=== PATIENT | male | born 1950 | race Caucasian/White ===

== ENCOUNTER 2018-10-06 13:22 | Inpatient (IN) | payer MEDICARE, BC ==
[~2018-10-06] VITALS: Ht 175.3 cm; Wt 102.0 kg
[~2018-10-06 13:22] MED LIST: ASPIRIN 32325 MG/TAB PO; ASPIRIN EXTRA500 M1 PO; ASPRIN; CEPHALEXIN500 M1 PO; EXCEDRIN1 TAB PO; GLUCOPHAGE500 MG/TAB PO; MAVIK; MAVIK4 MG PO; NORCO 325 MG-51 TAB PO; PERCOCET 325 MG1 TA2 PO; PRILOSEC 20MG20 MG PO; TOPROL; TOPROL XL100 MG PO
[2018-10-06] MEDS ORDERED: TYLEINFANT PO (18:03)
[2018-10-06] MEDS ORDERED: [UNRECOGNIZED DRUG - CODE] PEG (18:10)
[2018-10-06] MEDS ORDERED: ASPIRIN 81M81 MG/TA2 PEG (18:11)
[2018-10-06] MEDS ORDERED: LIPITOR 10MG10 MG PEG (18:13)
[2018-10-06 18:53] VITALS: BP 100/63; PULSE 94; TEMP 98.3
--- NOTE | 2018-10-06 20:58 | NUR ---
Patient arrived via ambulance and was transferred to bed in room #338. Family followed arriving 10 to 15 minutes later. Initial assessment was completed by CRTT. Daughter had requested that her dad get put on BIPAP as he was on it when at [facility]. Will have nurse tomorrow discuss with Dr. Verde. Patient is a mouth breather, but when lying in bed his oxygen is at 94% on RA. He has never had a sleep study completed. Patient's was okay with him not using BIPAP tonight, but wanted to see what Dr. Verde said about it tomorrow.
--- NOTE | 2018-10-06 22:50 | NUR ---
CHECKED PLACEMENT AND RESIDUAL OF PEG TUBE. SEE PEG NOTES. 2CAL HN TUBE BOLUS FEEDING STARTED. GREG WELL. HOB UP45 DEGREES. CLEANED AROUND PEG TUBE SITE. OLD DRIED EXUDATE CLEANED AND PLACED DRAIN DRSG. MARADIAGA CATH CARE GIVEN. URINOMETER HAS THICK HAZY BUILDUP. CHANGED JUST DRAINAGE SYSTEM. NOTABLE HEMATOMAS BILAT GROIN AREAS. BRUISING EXTENDING DOWN RT THIGH AND MEDIAL KNEE. EDEMA +3 RLE. LLE +2 ALMOST +3. PEDAL & RADIAL PULSES DIFFICULT TO PALPATE. IMMOBILIZED TO RT FOOT FOR FOOT DROP. SCD'S ON BILAT. TEDS OFF FOR AWHILE TO LET SKIN BREATHE.
--- NOTE | 2018-10-06 23:00 | NUR ---
UNABLE TO GET PATIENT COMFORT. C/O BACK PAIN. LEVEL 10. PT IN & OUT OF CONFUSION. SOMETIMES VERY ORIENTED. PT VERY FATIGUED. FALLS ASLEEP INTHE MIDDLE OF SENTENCE THEN WAKES 3-5 MIN LATER. RESTLESS. THROWS LEG OVER EDGE OF BED. USING CALL LIGHT FREQUENTLY. CHECKED O2 SAT. 93% ROOM. SNORUS LOUD RESP WITH SMALL PERIODS OD APNEA. NOTIFIED LISA OF PT'S C/O BACK PAIN, HX AND ALLERGIES. NEW ORDER NOTED. PT REPOSITIONED SEVRAL TIMES 2:1 MAX ASSIST. PT FLACCID ON LT SIDE. SPEECH GARBLED BUT ABLE TO MAKE OUT MOST OF WHAT HES TRYING TO SAY.
--- NOTE | 2018-10-07 02:05 | NUR ---
O2 SAT 89% RA/ PLACED O2 AT 2L NC. NOTIFIED RT.
--- NOTE | 2018-10-07 02:49 | NUR ---
NOTIFIED HOUSE SUP NEED OF TORODOL 10MG TAB.
[2018-10-07] MEDS ORDERED: CORDARONE200 MG/TAB PEG (04:32)
[2018-10-07] MEDS ORDERED: AUGMENTIN ES-6125 ML PO (04:54)
[2018-10-07] MEDS ORDERED: REFRESH TEARS 330 ML OU (04:57)
[2018-10-07] MEDS ORDERED: CYMBALTA 30MG30 MG PO (04:59)
[2018-10-07] MEDS ORDERED: LASIX ORAL S10 MG/ML PEG (05:01)
[2018-10-07] MEDS ORDERED: NOVLOG SQ ×2 (05:03→05:07)
[2018-10-07] MEDS ORDERED: SODIUM BICARBO650 MG PEG (05:08)
[2018-10-07] MEDS ORDERED: NITROSTAT0.4 MG/TAB SL (05:09)
[2018-10-07] MEDS ORDERED: EXCEDRIN1 TAB PO (05:11)
[2018-10-07] MEDS ORDERED: PLAVIX 75MG TAB75 MG PEG (05:12)
[2018-10-07 05:23] VITALS: BP 119/76; PULSE 87; TEMP 97.7
--- NOTE | 2018-10-07 06:14 | NUR ---
PT HAD RESTLESS NIGHT. CALLS OUT FREQ. USES CALL LIGHT FREQUENTLY. REPOSITIONED SEVERAL TIMES FOR COMFORT. NO STOOLS TONIGHT.
[2018-10-07 17:22] VITALS: BP 114/76; PULSE 95; TEMP 99
--- NOTE | 2018-10-07 19:40 | NUR ---
See physician notification re: daughter Claire's phone call. Attempted to transfer to [employer] Dispatcher, Chaparrita, who was unable to take her call at the time. Called HS again, Jluis here to report to.
--- NOTE | 2018-10-07 20:07 | NUR ---
Claire called back, states she will be here in the morning to talk with Dr. Verde when he does rounds. States she does not need to have HS call her tonight.
--- NOTE | 2018-10-07 21:00 | NUR ---
PT RESTLESS. THROWING RT LEG OVER THE EDGE OF BED. ORIENTED WITH HAZY COGNITIVE FORGETFULNESS. SEROQUEL GIVEN. MONITORING CLOSELY. O2 SATS MAINTAIN BETWEEN 93-95 ON RA. SNORUS RESP AND OCCASIONALLY ERRATIC BREATHING WITH SM PERIODS OF APNEA. RESP STATUS UNCHANGED SINCE ADMISSION. PT GREG TF WELL WITH FLUSHES. CONTINUED SWALLOW & STERNAL PRECAUTION. PT ASKED FOR TUMS. SEE MAR. CALL LIGHT IN REACH. BED ALARMS SET.
--- NOTE | 2018-10-07 23:08 | NUR ---
This morning pt used call lt multiple times during report. Pt transferred out of by by therapy and returned to recliner with feet up, glass to dependent drainage, BUE elevated on pillows, yellow gripper sock and gown in place, Prafo brace to LLE for foot drop. Inspection of BLE CDI, returned brace. Pt drowsy between cares. Morning PEG TF given with minimal response from pt. arrived and concerned about pt's drowsiness, states he is not conversational and joking like yesterday. Informed that night nurse reported pt did not sleep well last night d/t frequent awakenings and pain. This nurse added that transferring from [facility] and being in new surroundings and lack of sleep contribute to pt's status today, but will inform Dr. Verde of concerns and that Dr. Vaz from [facility] had advised against Excedrin- although it was ordered to be cont PRN by [facility], it has been discontinued on IPR. agreeable to new order for seroquel at night, but daughter Claire called stating that Dr. Rodriguez's office did not want Excedrin, nor seroquel. This nurse updated Claire that Excedrin had been cancelled, then called Dr. Rodriguez's office and after speaking with SHEN Espinal, was okay with seroquel. This evening, and son apprised of order for Lovenox. Claire then called- see notes. Did not give Lovenox per Claire's request. Report to JEFF Valverde.
[2018-10-08 04:38] VITALS: BP 111/71; PULSE 99; TEMP 97.8
--- NOTE | 2018-10-08 06:30 | NUR ---
PT HAD MORE RESTFUL NIGHT ALTHOUGH NEEDED REPOITIONED FREQUENT D/T PT MOVES TO RT SIDE OF BED. PT COMPLAINS BACK AND NECK PAIN. GAVE TYLENOLES SCHEDULED PER PEG. PT PULLS OFF LIDODERM PATCHES AND THROWS TO FLOOR. MENTATION STILL HAZY BUT ABLE TO RELATE NEEDS.
[2018-10-08 07:59] LABS: MEAN CELL VOLUME 99 fl (80.0-100.0); MEAN CORPUSCULAR HGB CONC 30 g/dl (33.0-37.0); MEAN PLATELET VOLUME 10.2 fl (7.4-10.4); PLATELET COUNT 500 K/mm3 (130-400); RED BLOOD COUNT 3.15 M/mm3 (4.20-5.60); REDCELL DISTRIBUTION WIDTH-CV 17.7 % (11.5-14.5)
[2018-10-08 08:02] LABS: HEMATOCRIT 31.3 % (42.0-52.0); HEMOGLOBIN 9.4 g/dl (13.5-18.0); MEAN CORPUSCULAR HEMOGLOBIN 30 pg (27.0-31.0)
[2018-10-08 08:16] LABS: ALBUMIN 2.9 gm/dL (3.5-5.0); CALCIUM 8.7 mg/dL (8.4-10.2); CREATININE, serum 1.02 (0.66-1.25); MAGNESIUM 2.1 mg/dL (1.6-2.3); POTASSIUM 4.8 mmol/L (3.4-5.0); TOTAL PROTEIN 6.6 gm/dL (6.4-8.2)
--- NOTE | 2018-10-08 09:09 | NUR ---
Initial visit; Patient resting, Almond Pan Finisher spoke with family offering God's blessings and letting them know of the availability of Spiritual Care here at our hospital. They thanked Almond Pan Finisher for keeping Donald in her prayers.
[2018-10-08 09:35] LABS: BAND 2 % (0-10); BASOPHIL 1 % (0-2); EOSINOPHIL 1 % (0-4); LYMPHOCYTE 3 % (20.0-51.0); NEUTROPHILS 86 % (42.0-75.2); PLATELET ESTIMATE INCREASED (NORMAL)
[2018-10-08 09:36] LABS: ANISOCYTOSIS 1+; POLYCHROMASIA 1+
--- NOTE | 2018-10-08 13:55 | NUR ---
Patient resting in recliner at this time, call light in reach, chair alarm on. Patient has been complaining of pain 03/10 today, see new orders per Dr. Verde for Ultram 25 mg Q [address] Verde does not want to give anything stronger for pain through the weekend. Daughter had asked about the Lidoderm Patch being put on during the day. Dr. boudreauxayed this and patch was switched from being on at night to being on during the day. Will continue to monitor.
--- NOTE | 2018-10-08 15:52 | NUR ---
SW attempted to meet with patient for initial intake. While SW was speaking to patient, patient fell asleep. SW will try back later.
[2018-10-08 15:56] VITALS: BP 106/63; PULSE 94; TEMP 98.4
[2018-10-08 18:01] LABS: COLLECTION METHOD IN
[2018-10-08 18:21] LABS: MUCOUS Present /lpf; PH 5 (5-8); SQUAMOUS EPITHELIAL 0-2 /hpf; URINE APPEARANCE Cloudy; URINE BACTERIA Rare /hpf; URINE BILIRUBIN Negative (NEGATIVE); URINE BLOOD 2+ (NEGATIVE); URINE COLOR Yellow; URINE GLUCOSE Negative (NEGATIVE); URINE KETONE Negative (NEGATIVE); URINE LEUKOCYTE ESTERASE Trace (NEGATIVE); URINE NITRATE Negative (NEGATIVE); URINE PROTEIN(semi-quant) Negative (NEGATIVE); URINE RBC >50 /hpf; URINE UROBILINOGEN Negative (NEGATIVE)
--- NOTE | 2018-10-08 20:00 | NUR ---
Patient drowsy and dozes during tube feeding, given via peg tube once repositioned up in bed max 2 assist. HOB elevated 90 degrees during and following tube feeding. Meds given crushed via peg tube. Peg site cleansed with saline, patted dry and new drain sponge applied. Kpad to back. Mouth care provided and moisterizer to lips q 2hours.
--- NOTE | 2018-10-08 21:37 | NUR ---
Dr. Verde approved for patient to have Ultram 50 mg Q 4 Hours PRN. See new orders.
--- NOTE | 2018-10-09 00:15 | NUR ---
Patient max 2 to right side. Rests with eyes closed.
--- NOTE | 2018-10-09 02:07 | NUR ---
Pain med given via peg tube. Patient incontinent of moderate amount liquid brown bm and max 2 assist to change/linens and gown changed. Stool sample sent to lab.
--- NOTE | 2018-10-09 04:15 | NUR ---
patient rests with eyes closed. Respirations with ease.
[2018-10-09 05:32] VITALS: BP 128/64; PULSE 96; TEMP 97.6
[2018-10-09 09:30] VITALS: PULSE 89
--- NOTE | 2018-10-09 13:15 | NUR ---
Report from JEFF Vang. Pt given morning tube feed in bed at 30*, pt complained of difficulty breathing, O2 and HR WNL, sat pt up in bed more with improvement. Banitrol and Protein supplement given this morning, meds crushed via PEG. Son Hunter and Krystina visited this morning. Pt reported need to have a BM, transferred with lift to [facility] with 3 assist, then returned to chair. Johnson cares provided. Pt drowsy between cares, asks for pain med too soon, repositioned, lidocain patch between shoulder blades. Johnson to dependent drainage, kong. Changed PEG drain sponge. Air mattress to bed. Pt requests oral swab frequently, assisted, left sided neglect. Prafo boot to LLE except for transfers. Yellow gown and gripper socks in place.
--- NOTE | 2018-10-09 13:30 | NUR ---
Dr. Verde aware of UA results.
--- NOTE | 2018-10-09 14:04 | NUR ---
SW attempted to meet with the patient. The patient kept closing his eyes. SW asked the patient if he would like to meet at a later time; the patient acknowleged yes with a nod up and down of his head. SW will attempt at a later time.
[2018-10-09 17:50] VITALS: BP 115/65; PULSE 94; TEMP 97.8
--- NOTE | 2018-10-09 20:30 | NUR ---
Patient in bed, awake. Johnson catheter replaced. Patient tolerated well. Blood-tinged urine returned. Denies pain. Repositioned in bed. Will continue to monitor.
--- NOTE | 2018-10-09 20:57 | NUR ---
Prior to shift change, pt reports urge for BM, placed on bedpan, no results, then pt states he needs to urinate. 1000 ml kong urine, hazy with sediment out this shift, but no output now, would not irrigate, visible orange sediment in proximal end of glass, obtained orders to change. Removed old glass, tip intact and covered with buildup of orange-brown sediment. Pt bled slightly from urethra after glass removed. Cleansed, inserted 18 fr coude cath with new drainage bag using sterile technique. Pt bishnu well, return of blood-tinged urine. Report to JEFF Lawton. Pt in bed with air mattress, call lt, alarm on, prafo boot to LLE, yellow gown and gripper socks.
--- NOTE | 2018-10-10 01:44 | NUR ---
Patient very restless. Banging on bed, shaking side table. Denies pain. When asked if he's in pain, or restless, he states he feels restless. Will notify JULIEN Ferguson for potential prn for restlessness. Patient states he is ok with that. Will continue to monitor.
--- NOTE | 2018-10-10 02:28 | NUR ---
Patient awake, in bed. Frequently falling asleep, but remains restless. Melatonin given per order. Patient also stated he wanted pain meds, but denies pain. Prn pain medication given, tylenol held this dose. Repositioned in bed. Will continue to monitor.
[2018-10-10 04:58] VITALS: BP 120/63; PULSE 93; TEMP 97.6
--- NOTE | 2018-10-10 05:09 | NUR ---
Patient in bed, very restless. States, 10/10 pain in neck. Falls asleep mid-sentence. Scheduled tylenol given. Assisted with application of home emu cream to neck. Repositioned pillows for comfort. Will reassess pain.
--- NOTE | 2018-10-10 06:36 | NUR ---
Patient c/o pain in neck and shoulder. Still very restless. Prn pain medication given. Repositioned in bed. Will continue to monitor.
--- NOTE | 2018-10-10 10:53 | NUR ---
Patient resting in bed at this time, call light in reach and family by his side. Patient continues to call out verbally and using call light complaining of dry mouth and wanting some water. Patient given biotene spray following cleaning his mouth. Patient also received chapstick. Will continue to monitor.
--- NOTE | 2018-10-10 13:34 | NUR ---
Patient calling every 10 to 15 minutes to assist with swabbing mouth out and/or putting on bed keys for bowel movement. Patient has not had a bowel movement this shift. Will continue to monitor.
[2018-10-10 17:22] VITALS: BP 118/65; PULSE 93; TEMP 98.5
--- NOTE | 2018-10-10 19:23 | NUR ---
Patient trying to sleep off an on through the day, but would not sleep more then [address] Verde was called see new orders for PRN Seroquell Q 4 hours and increase in scheduled Seroquell at HS. Patient did finally get some sleep following his dose of Seroquell. Patient tolerated feedings well today. No incontinent stools this shift. Family stopped by multiple times today and spent time with patient.
--- NOTE | 2018-10-10 21:00 | NUR ---
PT RESTING WITH OCCASIONAL WAKEFUL MOMEMTS. PT KNOWS THIS NURE'S NAME. PT DOES NOT LIKE TO BE ALONE. ANXIETY. REPOSITIONED 2:1 ASSIST. LT SIDE FLACCID. LT ARM & LEG ELEVATED ON PILLOW. LT PRAFO BOOT IN PLACE TO SUPPORT FOOT DROP. MOUTHCARE DONE. TF PER PEG TOLERATED WELL.
--- NOTE | 2018-10-10 22:00 | NUR ---
PT RESTING MUCH BETTER AND RELAXED POSITION. NO RESP DISTRESS. BREATHING EVEN AND UNLABORED. NO ERRATTIC BREATHING NOTED. O2 96% RA. NO EVIDENCE OF PAIN. CALL LIGHT IN REACH. BED ALARM SET.
--- NOTE | 2018-10-11 03:16 | NUR ---
PT USED CALL LIGHT. THOUGHT HE NEED A BM. PLACED ON BEDPAN 2:1. NO BM. REFRESHED PULL SHEET AND DIAPER. MOUTH CARE DONE. O2 SAT 93% RA. RETURNS TO SLEEP. CALL IGHT IN [facility]. BED ALARM SET.
[2018-10-11 03:52] VITALS: BP 112/67; PULSE 102; TEMP 98.2
--- NOTE | 2018-10-11 05:01 | NUR ---
PT PLACED ON BEDPAN AGAIN. NO RESULTS. HAVING SOME LOWER ABD CRAMPING. HOB ELEVATED.
--- NOTE | 2018-10-11 05:12 | NUR ---
GAVE COLACE PER PEG FOR ABD CRAMPING AND UNABLE TO HAVE BM. STILL ON BEDPAN.
--- NOTE | 2018-10-11 05:32 | NUR ---
SEE MAR FOR TUMS GIVEN PER REQUST.
--- NOTE | 2018-10-11 06:45 | NUR ---
PT REQUIRING SIGNIFICANT EMOTIONAL SUPPORT THIS AM. YELLING OUT, FREQUENTLY USING CALL LIGHT. PT ANXIOUS. RELAXES WHEN SOMEONE IS IN THE ROOM WITH HIM.
--- NOTE | 2018-10-11 08:13 | NUR ---
Report from JEFF Valverde. Pt calling persistantly, re-oriented. Changed of incont stool with two assist.
--- NOTE | 2018-10-11 09:42 | NUR ---
[facility] okayed giving ice chips. Dr. Castaneda here to see pt, son Hunter and visiting. called this morning, answered questions. Second lab staff attempting blood draw.
[2018-10-11 10:05] LABS: ALBUMIN 3.2 gm/dL (3.5-5.0); CALCIUM 8.9 mg/dL (8.4-10.2); CREATININE, serum 1.21 (0.66-1.25); MAGNESIUM 2.4 mg/dL (1.6-2.3); PHOSPHOROUS 5.2 mg/dL (2.5-4.5); POTASSIUM 4.9 mmol/L (3.4-5.0); TOTAL PROTEIN 7.3 gm/dL (6.4-8.2)
--- NOTE | 2018-10-11 10:32 | NUR ---
Pt asked for another TUMS.
--- NOTE | 2018-10-11 13:02 | NUR ---
SW attempted to contact patient's , Krystina, for initial intake. SW left a message.
--- NOTE | 2018-10-11 13:55 | NUR ---
The patient's , Krystina contacted ERIC to do an initial assessment on behalf of the patient. ERIC discussed a discharge plan with Krystina. Krystina reports her and the patient live in [place]. The patient does not use any DME. The patient's PCP is Dr. Angelo and receives medications from [facility]. Krystina stated they may need financial assistance with medications at discharge. The patient does not have advanced directives in the EMR, but they are completed. The plan is to return home upon discharge. ERIC will continue to follow for any anticipated discharge needs.
[2018-10-11 15:43] VITALS: BP 123/79; PULSE 96; TEMP 98.1
--- NOTE | 2018-10-11 22:17 | NUR ---
Resting in bed. Requesting ice chips. Assessment complete. Base bilaterally coarse crackles. Otherwise clear. Heart sounds normal. Bowels active x4. Pulses strong throughout. No edema noted. Sternum incision scab present and healing. Bilateral groin bruising present. Boot to left foot in place. SCDs on. Right inner knee incision present, appears glued and is without complications. Lidocaine patches removed x2. Johnson without complications. Rating pain 10/10, provided with PRN ultram. PEG tube feeding complete without complications. 5ml residual. Denies other needs at this time. Will continue to monitor. Bed alarm in place.
[2018-10-11 23:57] VITALS: BP 118/65; PULSE 100; TEMP 98.5
--- NOTE | 2018-10-12 00:06 | NUR ---
Resting in bed. Repositioned. Reports 8/10 pain. Provided scheduled tylenol. Will monitor.
--- NOTE | 2018-10-12 02:11 | NUR ---
Resting in bed. Repositioned at this time. Denies needs. Call light in reach.
--- NOTE | 2018-10-12 04:06 | NUR ---
Repositioned. Denies needs. Call light in reach.
[2018-10-12 05:48] VITALS: BP 132/78; PULSE 100; TEMP 99.1
--- NOTE | 2018-10-12 06:59 | NUR ---
Uneventful night. Repositioned with oral care Q2H. Report given to JEFF Ellison
--- NOTE | 2018-10-12 13:53 | NUR ---
Patient resting in bed at this time, call light in reach and bed alarm is on. Patient reporting pain 6-7/10 to neck and back. Given prn tramadol with some effect. Will continue to monitor. Patient had two loose black bowel movements today. Called and talked with Dr. Villalba see new orders for KUB ABDOMEN. Discussed CXR showing Left Side Pleural Effusion - Dr. Villalba is aware no new orders at this time.
[2018-10-12 16:51] VITALS: BP 135/84; PULSE 87; TEMP 97.5
--- NOTE | 2018-10-12 19:09 | NUR ---
Patient had a swallow study completed and was advanced to pureed diet and thickened liquids with straw. Patient ate and drank 60% of his meal with Vic/DEDRA assisting him with eating. Following patient eating, KUB Abdomen results came in stating he had a possible ileus. Grazyna was called and she ordered patient to be on clear liquid diet and approved him having nectar thick clear liquids with straw. Will continue to monitor.
--- NOTE | 2018-10-12 19:45 | NUR ---
Shift assessment complete. Patient a/o x4, awake in bed. Short-term memory deficit noted as evidenced by frequent calling liquor commissioner light, and repeating self multiple times, after needs have been addressed. States he is having a little pain, prn and scheduled pain medicine given. Will continue to monitor. Oral care provided. Patient tolerated well.
--- NOTE | 2018-10-13 00:45 | NUR ---
Patient lying in bed, awake. Repositioned to left side with several pillows, and assist of 3. Patient c/o 6/10 pain in neck, scheduled pain medication given. Patient states he is passing a lot of gas, and has heartburn. Mentioned he takes prilosec at home. Will pass on to day shift to have reorder his home prilosec. Oral care provided. Ice chip given, HOB at 90 degrees while giving ice chips.
--- NOTE | 2018-10-13 01:36 | NUR ---
Patient c/o increased gas pain and nausea. Notified JULIEN Novoa. Antiemetic given, prn pain medication given. Heating pad placed on abdomen per pt request. Will continue to assess.
--- NOTE | 2018-10-13 02:07 | NUR ---
Patient repeatedly calling about nausea/pain. Reminded patient that antiemetic/pain medication were given 15 minutes ago, at 0145. Reminded him that it may take a little while for the medicine to be effective. Will notify JULIEN Novoa again if medication is not effective after 30 minutes. Patient ok with plan.
--- NOTE | 2018-10-13 02:14 | NUR ---
Notified JULIEN Novoa of increased anxiety and nausea. Prn ativan ordered. Will give ordered medication and continue to monitor.
--- NOTE | 2018-10-13 02:31 | NUR ---
Patient continues to call repeatedly for ice chips and water. Reminded patient that he cannot have anymore ice chips due to his increased abdominal pain and nausea. Oral care provided, biotene administered. Patient is still asking for ice chips and water, despite reminding him that he needs to take a break from the ice chips due to his nausea and abdominal pain. Patient states he understands, but calls on the call light for ice chips as soon as I left the room. Reminded him again that he needs to take a break from the ice chips and water, and allow the medication to be effective. Non-pharmalogical interventions attempted; repositioning, cold washcloth, warm blanket, heating pad to abdomen. Patient states, these interventions have helped. But he is still nauseous and painful. Medication has been given less than an hour ago, reminded patient he needs to wait a little while for the medication to be effective. States, he understands. Will continue to monitor.
--- NOTE | 2018-10-13 02:42 | NUR ---
Patient continuing to complain of abdomen pain. Will notify JULIEN Novoa to see if there is anything else we can do to to relieve his pain. Patient ok with plan, but called on the call light 3 times in less than a minute, before I could even notify JULIEN Novoa. Reminded patient he needed to wait for me to get ahold of JULIEN Novoa. States, he understands.
--- NOTE | 2018-10-13 02:51 | NUR ---
Notified JULIEN Novoa of increased abdominal pain. STAT CT ordered. CT notified.
[2018-10-13 03:00] VITALS: BP 98/53; PULSE 86; TEMP 97.8
--- NOTE | 2018-10-13 03:00 | NUR ---
22g IV placed in right AC for STAT CT. One attempt, blood return noted, saline locked. Patient transported to CT with RN and obstetrics tech.
--- NOTE | 2018-10-13 03:40 | NUR ---
Patient returned to room from CT with RN and automotive technician. Patient sleeping, arouses to name. Repositioned in bed. Will continue to monitor.
--- NOTE | 2018-10-13 04:50 | NUR ---
Patient continues to yell out, banging against side rails, pulling on glass catheter. States he is still nauseous and painful. Sommer VICTORIA notified. Meds ordered. Notified patient that I will have to get the medication for him. Yells out for nurse the moment I leave the room. Continues to bang on side rails until I reenter his room. Meds to be given. Will continue to monitor pain and nausea.
[2018-10-13 06:01] VITALS: BP 108/66; PULSE 85
[2018-10-13 06:02] LABS: BASO % 0.3 % (0.0-2.0); EOS # 0.9 (0.0-0.7); EOS % 6.5 % (0-4.0); GRAN # 10.3 (1.4-6.5); GRAN % 71.6 % (42.2-75.2); LYMPH % 13.5 % (20.0-51.0); MEAN CELL VOLUME 99 fl (80.0-100.0); MEAN CORPUSCULAR HGB CONC 29 g/dl (33.0-37.0); MONO % 7.2 % (1.7-9.3); PLATELET COUNT 633 K/mm3 (130-400); RED BLOOD COUNT 3.02 M/mm3 (4.20-5.60); REDCELL DISTRIBUTION WIDTH-CV 15.8 % (11.5-14.5)
[2018-10-13 06:04] LABS: HEMATOCRIT 29.9 % (42.0-52.0); HEMOGLOBIN 8.7 g/dl (13.5-18.0); MEAN CORPUSCULAR HEMOGLOBIN 29 pg (27.0-31.0)
--- NOTE | 2018-10-13 06:10 | NUR ---
Patient in bed, continues to ask for water and ice chips. Yelling out and banging on side rails. Reminded patient that he is nauseous and painful, and that drinking anything will possibly make his pain worse. Oral care provided, biotene used. Continues to request ice chips and water. IV infusing ordered NS into right AC. Antiemetic given per protocol/order into right AC. Will continue to monitor.
[2018-10-13 06:17] LABS: ALBUMIN 2.8 gm/dL (3.5-5.0); BILIRUBIN,TOTAL 0.6 mg/dL (0.0-1.0); CALCIUM 8.7 mg/dL (8.4-10.2); CREATININE, serum 1.1 (0.66-1.25); MAGNESIUM 2.2 mg/dL (1.6-2.3); POTASSIUM 4.5 mmol/L (3.4-5.0); TOTAL PROTEIN 6.5 gm/dL (6.4-8.2)
[2018-10-13 09:40] LABS: COLLECTION METHOD IN
[2018-10-13 10:01] LABS: AMORPHOUS CRYSTAL Present /uL; MUCOUS Present /lpf; PH 5 (5-8); SQUAMOUS EPITHELIAL None Seen /hpf; URINE APPEARANCE Cloudy; URINE BACTERIA Rare /hpf; URINE BILIRUBIN Negative (NEGATIVE); URINE BLOOD 3+ (NEGATIVE); URINE COLOR Yellow; URINE GLUCOSE Negative (NEGATIVE); URINE KETONE Negative (NEGATIVE); URINE LEUKOCYTE ESTERASE 2+ (NEGATIVE); URINE NITRATE Negative (NEGATIVE); URINE PROTEIN(semi-quant) Negative (NEGATIVE); URINE RBC >50 /hpf; URINE UROBILINOGEN Negative (NEGATIVE)
--- NOTE | 2018-10-13 14:31 | NUR ---
ERIC met with patient's to review IPR team conference notes and to inform her of the IPR teams recommendation to transfer patient to [facility]. Patient's reports that she would be agreeable to patient transfering patient to [facility]. ERIC reported that she faxed a referral to [facility] and he will report back to ERIC after the clinical team reviews the case and after speaking to patient's insurance. ERIC will keep patient's updated.
--- NOTE | 2018-10-13 17:53 | NUR ---
Patient resting in bed at this time, call light in reach and bed alarm is on. Patient had family visit today and met with ERIC and Rosette. He will be staying at this rehab instead of going to [facility]. Patient is currently on nectar thick clear liquids at this time. Tomorrow will start back on peg tube feedings slowly. Patient has not had any abdominal pain or nausea today. Will continue to monitor.
--- NOTE | 2018-10-13 18:00 | NUR ---
Dr. Castaneda stopped by this afternoon to review patient meds due to patient not sleeping last night and not functioning well for therapy today. See new orders for increase in Cymbalta, scheduled Seroquel, and new trazadone. Dr. Castaneda said not to be afraid to give the Seroquel during the day if needed as well. This was communicated to the night nurse. Patient's urine sample was collected and sent to lab. See new orders for ABX that started today for UTI. Patient was also educated on use of the I.S. and was able to demonstrate it correctly. He has one I.S. from [facility] on his table and one in his cabinet from [facility] since the other one had a broken base on it. Patient has tolerated the Clear nectar thick liquid diet today well. Dr. Verde has okay'd patient to advance diet tomorrow slowly. Patient has been approved for pureed foods and nectar thick liquids with a straw, but has to be sitting up at 90 degrees. Patient was dehydrated so is still currently getting IV fluids at this time. Will continue to monitor.
[2018-10-13 18:47] VITALS: BP 122/71; PULSE 80; TEMP 98
--- NOTE | 2018-10-13 20:00 | NUR ---
HS meds all reviewed and given via peg tube without problems. No residual. at bedside. Patient assisted x 2 assist onto bedpan and had scant brown liquid stool. Cleaned and cath care done. Repositioned to left side. BLE and LUE elevated on pillows. knee hi teds removed. SCD's on.
--- NOTE | 2018-10-13 21:15 | NUR ---
Patient has been resting with eyes closed. Respirations with ease. left for the night.
--- NOTE | 2018-10-14 02:11 | NUR ---
Patient resting quietly. Respirations with ease.
--- NOTE | 2018-10-14 02:30 | NUR ---
Awake and repostioned x 2 assist. Denies further needs.
[2018-10-14 04:06] VITALS: BP 133/69; PULSE 80; TEMP 98.5
--- NOTE | 2018-10-14 05:11 | NUR ---
PATIENT REPORTS NECK PAIN 12/08 AND SCHEDULED TYLENOL GIVEN. ON AND OFF BEDPAN MAX 2 ASSIST. STATES "SLEPT WELL LAST NIGHT".
--- NOTE | 2018-10-14 06:02 | NUR ---
Patient does IS around 10 times with best results 1000.
--- NOTE | 2018-10-14 06:35 | NUR ---
PATIENT RATES NECK AND BACK PAIN 7/10 AND TRAMADOL 50MG GIVEN VIA PEG TUBE. LAB INTO DRAW BLOOD. PATIENT GIVEN ICE CHIPS.
[2018-10-14 06:47] LABS: BASO % 0.4 % (0.0-2.0); EOS # 0.9 (0.0-0.7); EOS % 8.7 % (0-4.0); GRAN # 6.9 (1.4-6.5); GRAN % 67.1 % (42.2-75.2); LYMPH # 1.4 (1.2-3.4); MEAN CELL VOLUME 99 fl (80.0-100.0); MEAN CORPUSCULAR HGB CONC 29 g/dl (33.0-37.0); MEAN PLATELET VOLUME 9.8 fl (7.4-10.4); MONO # 0.9 (0.1-0.6); MONO % 8.5 % (1.7-9.3); PLATELET COUNT 595 K/mm3 (130-400); REDCELL DISTRIBUTION WIDTH-CV 15.6 % (11.5-14.5)
[2018-10-14 06:48] LABS: HEMATOCRIT 27.6 % (42.0-52.0); MEAN CORPUSCULAR HEMOGLOBIN 29 pg (27.0-31.0)
[2018-10-14 06:55] LABS: ALBUMIN 2.5 gm/dL (3.5-5.0); BILIRUBIN,TOTAL 0.5 mg/dL (0.0-1.0); CALCIUM 8.1 mg/dL (8.4-10.2); CREATININE, serum 1.11 (0.66-1.25); MAGNESIUM 2.1 mg/dL (1.6-2.3); POTASSIUM 4.5 mmol/L (3.4-5.0); TOTAL PROTEIN 5.8 gm/dL (6.4-8.2)
--- NOTE | 2018-10-14 10:31 | NUR ---
Report from JEFF Vang. Pt calling frequently this morning until family arrived, more than ten times since shift change despite re-orienting pt that he already had pain meds, repositioning as requested, enc to use bedpan. Claire, daughter called for update, answered questions best to ability. Krystina and son Hunter arrived and answered questions, informed them that it may be better to return family's calls at nursing's convenience when at the computer to be able to better answer questions- rather than during shift change or while passing morning meds to pts prior to therapy. Pt resumed pureed diet and nectar thick liquids, cont IVF, hold tube feedings per Dr. Verde. TEDS and SCDs to BLE, Moses carbajal to SANDYE.
--- NOTE | 2018-10-14 11:39 | NUR ---
IVF paused at [address] as pt moves arm and sets off pump alarms.
--- NOTE | 2018-10-14 13:04 | NUR ---
ERIC informed by [facility] director that patient's family would like to explore the option of sending patient to [facility]. ERIC contacted [facility] ([phone]) from [facility] and faxed a referral.
--- NOTE | 2018-10-14 15:42 | NUR ---
ERIC spoke to Amaya at [facility] She reports they can accept patient tomorrow. ERIC contacted IPR director to inform her of this. IPR director then spoke to patient's family and they would like to be trasnfered. ERIC contacted [facility] again and reported that she will fax discharge orders to her in the morning and also arrange transportation for 9 or 10am.
--- NOTE | 2018-10-14 17:57 | NUR ---
Pt's family departed, seroquel PRN given to help with anxiety, pt asking repeat questions now that family gone. Johnson to Dependent drainage. Bed alarm on. IVF to RAC.
[2018-10-14 18:30] VITALS: BP 104/64; PULSE 80; TEMP 97.6
[2018-10-15 04:09] VITALS: BP 105/67; PULSE 83; TEMP 98.1
[2018-10-15] MEDS ORDERED: DESYREL 50MG50 MG PO (08:33)
[2018-10-15] MEDS ORDERED: ULTRAM 50MG TAB50 MG PO (08:33)
[2018-10-15] MEDS ORDERED: CYMBALTA 60MG60 MG PO (08:33)
[2018-10-15] MEDS ORDERED: SEROQUEL 2525 MG/TAB PO (08:34)
[2018-10-15] MEDS ORDERED: SEROQUEL50 MG PO (08:34)
[2018-10-15] MEDS ORDERED: TUMS500 MG PO (08:34)
[2018-10-15] MEDS ORDERED: IMODIUM 2MG CAPS2 MG PO (08:35)
[2018-10-15] MEDS ORDERED: METAMUCIL3.4 GM/DOS PO (08:35)
[2018-10-15] MEDS ORDERED: ZOFRAN ODT4 MG PO (08:36)
[2018-10-15] MEDS ORDERED: MIRALAX PA17 GM/Dose PO (08:36)
[2018-10-15] MEDS ORDERED: PROTONIX 40MG T40 MG PO (08:36)
[2018-10-15] MEDS ORDERED: SENOKOT S 50 MG1 TAB PO (08:36)
[2018-10-15] MEDS ORDERED: NOVLOG SQ (08:37)
[2018-10-15] MEDS ORDERED: CEFTRIAXON1 GM/50 M1 IV (08:37)
--- NOTE | 2018-10-15 09:39 | NUR ---
Patient will discharge to [facility] today via EMS. EMS was set up for 9:30am. ERIC faxed discharge orders to [facility].
--- NOTE | 2018-10-15 10:00 | NUR ---
Patient is discharging to [facility] in [place] via EMS. All belongings packed up and sent with family. Report called to Lelia AGUILAR. Info packet and orders sent with EMS.
== END 2018-10-15 09:50 | DRG 57 ==
PROVIDERS: Nurse Practitioner Family; ADMIT Internal Medicine
DX: I69.354 Hemiplegia and hemiparesis following cerebral infarction affecting left non-dominant side (principal); N39.0 Urinary tract infection, site not specified; K56.7 Ileus, unspecified; I69.320 Aphasia following cerebral infarction; I69.322 Dysarthria following cerebral infarction; I48.91 Unspecified atrial fibrillation; I25.10 Atherosclerotic heart disease of native coronary artery without angina pectoris; F32.9 Major depressive disorder, single episode, unspecified; E11.9 Type 2 diabetes mellitus without complications; I50.9 Heart failure, unspecified; D69.6 Thrombocytopenia, unspecified; F43.22 Adjustment disorder with anxiety; G47.00 Insomnia, unspecified; G89.4 Chronic pain syndrome; I11.0 Hypertensive heart disease with heart failure; Z95.1 Presence of aortocoronary bypass graft; Z93.1 Gastrostomy status; Z79.82 Long term (current) use of aspirin; Z79.4 Long term (current) use of insulin; Z87.891 Personal history of nicotine dependence; Z88.6 Allergy status to analgesic agent; Z88.9 Allergy status to unspecified drugs, medicaments and biological substances
CPT/HCPCS: 99222-AI; 99233-AI; A4216; A9284; G0463; J0696; J1644; J1815; J2550; J7030; Q9967

== ENCOUNTER 2019-03-02 06:04 | Emergency (ER) | payer MEDICARE, BC ==
[~2019-03-02] VITALS: Ht 172.7 cm; Wt 100.0 kg
[~2019-03-02 06:04] MED LIST changes: +ASPIRIN 81M81 MG/TA2 PEG; +AUGMENTIN ES-6125 ML PO; +CEFTRIAXON1 GM/50 M1 IV; +CORDARONE200 MG/TAB PEG; +CYMBALTA 30MG30 MG PO; +CYMBALTA 60MG60 MG PO; +DESYREL 50MG50 MG PO; +IMODIUM 2MG CAPS2 MG PO; +LASIX ORAL S10 MG/ML PEG; +LIPITOR 10MG10 MG PEG; +METAMUCIL3.4 GM/DOS PO; +MIRALAX PA17 GM/Dose PO; +NITROSTAT0.4 MG/TAB SL; +NOVLOG SQ; +PLAVIX 75MG TAB75 MG PEG; +PROTONIX 40MG T40 MG PO; +REFRESH TEARS 330 ML OU; +SENOKOT S 50 MG1 TAB PO; +SEROQUEL 2525 MG/TAB PO; +SEROQUEL50 MG PO; +SODIUM BICARBO650 MG PEG; +TUMS500 MG PO; +TYLEINFANT PO; +ULTRAM 50MG TAB50 MG PO; +ZOFRAN ODT4 MG PO; +[UNRECOGNIZED DRUG - CODE] PEG
[2019-03-02 06:51] LABS: BASO % 0.4 % (0.0-2.0); EOS # 0.4 (0.0-0.7); EOS % 4.5 % (0-4.0); GRAN # 5.5 (1.4-6.5); GRAN % 68.7 % (42.2-75.2); HEMATOCRIT 40.4 % (42.0-52.0); HEMOGLOBIN 12.9 g/dl (13.5-18.0); LYMPH # 1.2 (1.2-3.4); MEAN CELL VOLUME 87 fl (80.0-100.0); MEAN CORPUSCULAR HEMOGLOBIN 28 pg (27.0-31.0); MEAN CORPUSCULAR HGB CONC 32 g/dl (33.0-37.0); MEAN PLATELET VOLUME 9.8 fl (7.4-10.4); MONO # 0.9 (0.1-0.6); MONO % 10.9 % (1.7-9.3); PLATELET COUNT 179 K/mm3 (130-400); RED BLOOD COUNT 4.64 M/mm3 (4.20-5.60); REDCELL DISTRIBUTION WIDTH-CV 16.5 % (11.5-14.5)
[2019-03-02 06:57] LABS: PARTIAL THROMBOPLASTIN TIME 23.6 SECONDS (26.0-37.0)
[2019-03-02 07:02] LABS: ALANINE AMINOTRANSFERASE 17 U/L (21-72); ALBUMIN 4.3 gm/dL (3.5-5.0); ALKALINE PHOSPHATASE 71 U/L (50-136); ANION GAP 11 mmol/L (7-16); AST,SGOT 35 U/L (15-37); BILIRUBIN,TOTAL 0.5 mg/dL (0.0-1.0); BLOOD UREA NITROGEN 25 mg/dL (9-20); CALCIUM 9.7 mg/dL (8.4-10.2); CARBON DIOXIDE 23 mmol/L (22-30); CHLORIDE 110 mmol/L (98-107); CREATININE, serum 0.92 (0.66-1.25); GLUCOSE 95 mg/dL (74-106); POTASSIUM 3.8 mmol/L (3.4-5.0); SODIUM 144 mmol/L (137-145); TOTAL PROTEIN 7.5 gm/dL (6.4-8.2)
[2019-03-02 07:18] LABS: TROPONIN-I < 0.012 ng/mL (0.000-0.035)
[2019-03-02 11:20] VITALS: BP 128/72; PULSE 77; TEMP 98.2
== END 2019-03-02 11:20 | disposition home or self-care (01) ==
LOC: COL.ER 06:04
PROVIDERS: Emergency Medicine
DX: R07.89 Other chest pain (principal); I11.0 Hypertensive heart disease with heart failure; K21.9 Gastro-esophageal reflux disease without esophagitis; E11.9 Type 2 diabetes mellitus without complications; I50.9 Heart failure, unspecified; I42.9 Cardiomyopathy, unspecified; Z88.5 Allergy status to narcotic agent; Z87.891 Personal history of nicotine dependence; Z95.1 Presence of aortocoronary bypass graft; Z86.73 Personal history of transient ischemic attack (TIA), and cerebral infarction without residual deficits; Z95.5 Presence of coronary angioplasty implant and graft; Z79.4 Long term (current) use of insulin; Z79.82 Long term (current) use of aspirin
CPT/HCPCS: J7030

== ENCOUNTER 2019-03-10 06:05 | Emergency (ER) | payer MEDICARE, BC ==
[2019-03-10 06:08] VITALS: TEMP 98.4
[2019-03-10 06:35] LABS: BASO % 0.4 % (0.0-2.0); EOS # 0.3 (0.0-0.7); EOS % 4.3 % (0-4.0); GRAN # 4.7 (1.4-6.5); GRAN % 67.9 % (42.2-75.2); HEMATOCRIT 40.2 % (42.0-52.0); HEMOGLOBIN 12.6 g/dl (13.5-18.0); LYMPH # 1.1 (1.2-3.4); LYMPH % 15.7 % (20.0-51.0); MEAN CELL VOLUME 89 fl (80.0-100.0); MEAN CORPUSCULAR HEMOGLOBIN 28 pg (27.0-31.0); MEAN CORPUSCULAR HGB CONC 31 g/dl (33.0-37.0); MEAN PLATELET VOLUME 9.9 fl (7.4-10.4); MONO # 0.8 (0.1-0.6); MONO % 11.3 % (1.7-9.3); PLATELET COUNT 195 K/mm3 (130-400); RED BLOOD COUNT 4.54 M/mm3 (4.20-5.60); REDCELL DISTRIBUTION WIDTH-CV 16.6 % (11.5-14.5)
[2019-03-10 06:45] LABS: PROTHROMBIN TIME 11.5 SECONDS (9.7-12.8)
[2019-03-10 06:47] LABS: ALANINE AMINOTRANSFERASE 12 U/L (21-72); ALBUMIN 4.3 gm/dL (3.5-5.0); ALKALINE PHOSPHATASE 70 U/L (50-136); ANION GAP 12 mmol/L (7-16); AST,SGOT 27 U/L (15-37); BILIRUBIN,TOTAL 0.3 mg/dL (0.0-1.0); BLOOD UREA NITROGEN 22 mg/dL (9-20); CALCIUM 9.4 mg/dL (8.4-10.2); CARBON DIOXIDE 26 mmol/L (22-30); CHLORIDE 106 mmol/L (98-107); GLUCOSE 124 mg/dL (74-106); POTASSIUM 4.2 mmol/L (3.4-5.0); SODIUM 144 mmol/L (137-145); TOTAL PROTEIN 7.4 gm/dL (6.4-8.2)
[2019-03-10 06:48] LABS: PARTIAL THROMBOPLASTIN TIME 31.1 SECONDS (26.0-37.0)
[2019-03-10 07:00] LABS: TROPONIN-I < 0.012 ng/mL (0.000-0.035)
[2019-03-10 11:45] VITALS: BP 115/82; PULSE 78
[2019-03-11] MEDS ORDERED: SENNA-LAX8.6 MG PO (08:48)
[2019-03-11] MEDS ORDERED: CELEBREX 1100 MG/CAP PO (08:51)
[2019-03-11] MEDS ORDERED: TYLENOL 325MG325 MG PO (08:51)
[2019-03-11] MEDS ORDERED: PROTONIX 40MG T40 MG PO (08:52)
[2019-03-11] MEDS ORDERED: FLOMAX 0.40.4 MG/CAP PO (08:52)
[2019-03-11] MEDS ORDERED: SYSTANE 0.4%-0.1 SOL OP (08:53)
[2019-03-11] MEDS ORDERED: FLECTOR1.3% TD (08:55)
[2019-03-11] MEDS ORDERED: FLONASEALLERGY NS (08:55)
[2019-03-11] MEDS ORDERED: TUMS500 MG PO (08:57)
[2019-03-11] MEDS ORDERED: QUALITY CH400 MG/5 M PO (08:57)
[2019-03-11] MEDS ORDERED: DULCOLAX S10 MG/SUPP RC (08:58)
[2019-03-11] MEDS ORDERED: ZOFRAN 4MG T4 MG/TAB PO (08:58)
[2019-03-11] MEDS ORDERED: SANI-SUPP1 SUP RC (09:07)
[2019-03-11] MEDS ORDERED: ASPERCREME1 EACH TP ×2 (09:08→09:09)
[2019-03-11] MEDS ORDERED: PROSCAR 5MG5 MG PO (09:10)
[2019-03-11] MEDS ORDERED: ZYPREXA 5MG5 MG PO (09:11)
== END 2019-03-10 11:45 | disposition home or self-care (01) ==
LOC: COL.ER 06:05
PROVIDERS: Emergency Medicine
DX: R07.9 Chest pain, unspecified (principal); I25.10 Atherosclerotic heart disease of native coronary artery without angina pectoris; E11.9 Type 2 diabetes mellitus without complications; I11.0 Hypertensive heart disease with heart failure; I50.9 Heart failure, unspecified; I25.5 Ischemic cardiomyopathy; Z79.4 Long term (current) use of insulin; Z95.1 Presence of aortocoronary bypass graft; Z86.73 Personal history of transient ischemic attack (TIA), and cerebral infarction without residual deficits; Z79.82 Long term (current) use of aspirin; W06.XXXA Fall from bed, initial encounter
CPT/HCPCS: J7030

== ENCOUNTER 2019-03-11 08:00 | Day surgery (SDC) | payer MEDICARE, BC ==
[~2019-03-11] VITALS: Ht 172.7 cm; Wt 97.7 kg
--- NOTE | 2019-03-11 08:40 | NUR ---
Dr. Leo is at the patient's bedside to perform the scheduled procedure. The patient's remained in the room during the procedure. The patient appeared to tolerate the procedure well and the PEG tube was successfully removed. A 4x4 gauze dressing was secured with paper tape.
[2019-03-11] MEDS ORDERED: SENNA-LAX8.6 MG PO (08:48)
[2019-03-11] MEDS ORDERED: TYLENOL 325MG325 MG PO (08:51)
[2019-03-11] MEDS ORDERED: CELEBREX 1100 MG/CAP PO (08:51)
[2019-03-11] MEDS ORDERED: PROTONIX 40MG T40 MG PO (08:52)
[2019-03-11] MEDS ORDERED: FLOMAX 0.40.4 MG/CAP PO (08:52)
[2019-03-11] MEDS ORDERED: SYSTANE 0.4%-0.1 SOL OP (08:53)
[2019-03-11] MEDS ORDERED: FLECTOR1.3% TD (08:55)
[2019-03-11] MEDS ORDERED: FLONASEALLERGY NS (08:55)
[2019-03-11] MEDS ORDERED: TUMS500 MG PO (08:57)
[2019-03-11] MEDS ORDERED: QUALITY CH400 MG/5 M PO (08:57)
[2019-03-11] MEDS ORDERED: ZOFRAN 4MG T4 MG/TAB PO (08:58)
[2019-03-11] MEDS ORDERED: DULCOLAX S10 MG/SUPP RC (08:58)
[2019-03-11] MEDS ORDERED: SANI-SUPP1 SUP RC (09:07)
[2019-03-11] MEDS ORDERED: ASPERCREME1 EACH TP ×2 (09:08→09:09)
[2019-03-11] MEDS ORDERED: PROSCAR 5MG5 MG PO (09:10)
[2019-03-11] MEDS ORDERED: ZYPREXA 5MG5 MG PO (09:11)
--- NOTE | 2019-03-11 09:50 | NUR ---
DC teaching completed with pt and . 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 Pt taken via own wheelchair to van at admissions entrance/exit. DC packet given to [facility] staff.
[2019-03-11 10:55] VITALS: BP 141/93; PULSE 83; TEMP 98.3
== END 2019-03-11 09:50 ==
LOC: SDCO 08:00
DX: K94.23 Gastrostomy malfunction (principal)

== ENCOUNTER 2019-07-17 09:58 | Emergency (ER) | payer MEDICARE, BC ==
[~2019-07-17] VITALS: Ht 172.7 cm; Wt 90.9 kg
[~2019-07-17 09:58] MED LIST changes: +ASPERCREME1 EACH TP; +CELEBREX 1100 MG/CAP PO; +DULCOLAX S10 MG/SUPP RC; +FLECTOR1.3% TD; +FLOMAX 0.40.4 MG/CAP PO; +FLONASEALLERGY NS; +PROSCAR 5MG5 MG PO; +QUALITY CH400 MG/5 M PO; +SANI-SUPP1 SUP RC; +SENNA-LAX8.6 MG PO; +SYSTANE 0.4%-0.1 SOL OP; +TYLENOL 325MG325 MG PO; +ZOFRAN 4MG T4 MG/TAB PO; +ZYPREXA 5MG5 MG PO
[2019-07-17 10:04] VITALS: TEMP 97.2
[2019-07-17] MEDS ORDERED: ROXICODONE 55 MG/TAB PO ×3 (13:04→15:45)
[2019-07-17] MEDS ORDERED: ZOFRAN ODT4 MG PO ×3 (13:04→15:45)
[2019-07-17] MEDS ORDERED: VALIUM 2MG T2 MG/TAB PO ×3 (13:28→15:45)
[2019-07-17 13:45] VITALS: BP 120/84; PULSE 63
== END 2019-07-17 13:45 | disposition home or self-care (01) ==
LOC: COL.ER 09:58
DX: M25.552 Pain in left hip (principal); E11.9 Type 2 diabetes mellitus without complications; I10 Essential (primary) hypertension; I25.10 Atherosclerotic heart disease of native coronary artery without angina pectoris; Z87.891 Personal history of nicotine dependence; Z79.02 Long term (current) use of antithrombotics/antiplatelets; Z79.51 Long term (current) use of inhaled steroids; Z95.9 Presence of cardiac and vascular implant and graft, unspecified; Z86.73 Personal history of transient ischemic attack (TIA), and cerebral infarction without residual deficits; Z79.82 Long term (current) use of aspirin; Z88.5 Allergy status to narcotic agent; W19.XXXA Unspecified fall, initial encounter

== ENCOUNTER 2019-10-28 15:43 | Inpatient (IN) | payer MEDICARE, BC ==
[~2019-10-28] VITALS: Ht 172.7 cm; Wt 100.2 kg
[~2019-10-28 15:43] MED LIST changes: -ASPIRIN 81M81 MG/TA2 PEG; +ASPIRIN 81M81 MG/TA2 PO; -LIPITOR 10MG10 MG PEG; +LIPITOR 10MG10 MG PO; -PLAVIX 75MG TAB75 MG PEG; +PLAVIX 75MG TAB75 MG PO; +ROXICODONE 55 MG/TAB PO; +VALIUM 2MG T2 MG/TAB PO
[2019-10-28 16:06] LABS: HEMATOCRIT 40.5 % (42.0-52.0); HEMOGLOBIN 12.9 g/dl (13.5-18.0); MEAN CELL VOLUME 90 fl (80.0-100.0); MEAN CORPUSCULAR HEMOGLOBIN 29 pg (27.0-31.0); MEAN CORPUSCULAR HGB CONC 32 g/dl (33.0-37.0); MEAN PLATELET VOLUME 9.5 fl (7.4-10.4); PLATELET COUNT 246 K/mm3 (130-400); REDCELL DISTRIBUTION WIDTH-CV 14.6 % (11.5-14.5)
[2019-10-28 16:13] LABS: BILIRUBIN,TOTAL 0.5 mg/dL (0.0-1.0); CALCIUM 9.1 mg/dL (8.4-10.2); CREATININE, serum 0.87 (0.66-1.25); POTASSIUM 4.2 mmol/L (3.4-5.0); TOTAL PROTEIN 7.4 gm/dL (6.4-8.2)
[2019-10-28] MEDS ORDERED: CELEXA10 MG PO (16:31)
[2019-10-28] MEDS ORDERED: FLEXERIL5 MG PO (16:32)
[2019-10-28] MEDS ORDERED: ZYRTEC5 MG PO (16:32)
[2019-10-28 16:34] LABS: ANISOCYTOSIS 1+; BAND 1 % (0-10); EOSINOPHIL 4 % (0-4); LYMPHOCYTE 12 % (20.0-51.0); MYELOCYTE 1 % (0-0); NEUTROPHILS 76 % (42.0-75.2); PLATELET ESTIMATE NORMAL (NORMAL)
[2019-10-28 16:35] LABS: ARTERIAL BLD GAS O2 SATURATION 93.3 % (92-100); ARTERIAL BLD GAS TCO2 CT 22.4; ARTERIAL BLOOD GAS BASE EXCESS -2.3 (-2-2); ARTERIAL BLOOD GAS HCO3 21.3 meq/L (22-26); ARTERIAL BLOOD GAS PCO2 33.4 mmHg (35-45); ARTERIAL BLOOD GAS pH 7.42 (7.35-7.45)
[2019-10-28 18:08] LABS: COLLECTION METHOD CLEAN CATCH
[2019-10-28 18:13] LABS: MUCOUS Present /lpf; PH 5 (5-8); SQUAMOUS EPITHELIAL None Seen /hpf; URINE APPEARANCE Clear; URINE BACTERIA None Seen /hpf; URINE BILIRUBIN Negative (NEGATIVE); URINE BLOOD Negative (NEGATIVE); URINE COLOR Yellow; URINE GLUCOSE Negative (NEGATIVE); URINE KETONE Negative (NEGATIVE); URINE LEUKOCYTE ESTERASE Negative (NEGATIVE); URINE NITRATE Negative (NEGATIVE); URINE PROTEIN(semi-quant) Negative (NEGATIVE); URINE RBC 0-2 /hpf
[2019-10-28 22:59] VITALS: BP 136/78; PULSE 66; TEMP 97.8
[2019-10-28] MEDS ORDERED: CELEXA40 MG PO (23:07)
[2019-10-28 23:18] LABS: MAGNESIUM 1.8 mg/dL (1.6-2.3)
[2019-10-28] MEDS ORDERED: ZYRTEC 10MG10 MG PO (23:18)
--- NOTE | 2019-10-28 23:30 | NUR ---
Patient to medical room 314 at this time with ED RN Jose L. Patient is drowsy at this time but responds to voice and is pleasant when answering questions for 5 page assessment. His lungs are clear, heart sounds normal/regular. He does have left sided residual weakness and decreased sensation from stroke in August 2018. He complains of some discomfort in his left hip as well. No edema is present. He wears a brace on his left lower leg and says he uses a cane at home to ambulate with assistance from his , who is his primary corporate associate. No concerns at this time.
[2019-10-28 23:31] LABS: TROPONIN-I < 0.012 ng/mL (0.000-0.035)
[2019-10-28 23:51] VITALS: BP 136/78; PULSE 66; TEMP 97.8
[2019-10-29 03:12] VITALS: BP 141/96; PULSE 91; TEMP 98.8
--- NOTE | 2019-10-29 06:01 | NUR ---
Patient has had an uneventful night. He has just woken up and states he has never slept so well in the hospital. He requests to call his , who says she will be in soon to visit. He also asks questions about his plan of care for the day, to which he is updated by this RN. He states he would like to try and sleep some more before his comes. He also still has discomfort in his left hip. No new concerns at this time.
[2019-10-29 07:27] VITALS: BP 123/75; PULSE 77; TEMP 97.7
[2019-10-29 07:31] LABS: HEMATOCRIT 39.5 % (42.0-52.0); HEMOGLOBIN 12.7 g/dl (13.5-18.0); MEAN CELL VOLUME 89 fl (80.0-100.0); MEAN CORPUSCULAR HEMOGLOBIN 29 pg (27.0-31.0); MEAN CORPUSCULAR HGB CONC 32 g/dl (33.0-37.0); MEAN PLATELET VOLUME 9.3 fl (7.4-10.4); PLATELET COUNT 227 K/mm3 (130-400); RED BLOOD COUNT 4.44 M/mm3 (4.20-5.60); REDCELL DISTRIBUTION WIDTH-CV 14.6 % (11.5-14.5)
[2019-10-29 07:42] LABS: ANION GAP 10 mmol/L (7-16); BLOOD UREA NITROGEN 24 mg/dL (9-20); CALCIUM 9.1 mg/dL (8.4-10.2); CARBON DIOXIDE 26 mmol/L (22-30); CHLORIDE 101 mmol/L (98-107); CHOLESTEROL 132 mg/dL (120-200); CHOLESTEROL RISK RATIO 5.5; CREATININE, serum 0.87 (0.66-1.25); GLUCOSE 117 mg/dL (74-106); HDL CHOLESTEROL 24 mg/dL; LDL CHOLESTEROL 84 mg/dL; POTASSIUM 4.1 mmol/L (3.4-5.0); SODIUM 137 mmol/L (137-145); TRIGLYCERIDE 119 mg/dL
[2019-10-29 07:53] LABS: TROPONIN-I < 0.012 ng/mL (0.000-0.035)
[2019-10-29 08:05] LABS: BAND 6 % (0-10); EOSINOPHIL 4 % (0-4); LYMPHOCYTE 10 % (20.0-51.0); METAMYELOCYTE 6 % (0-0); NEUTROPHILS 67 % (42.0-75.2); OVALOCYTES 1+; PLATELET ESTIMATE NORMAL (NORMAL)
--- NOTE | 2019-10-29 09:37 | NUR ---
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 Pt is A&O repetitive w/ requests to see a doctor. Pt states he hasn't "seen a Dr. in 12 hours". According to notes, pt arrived to floor around 2330 last night. Pt was seen by ER doctor and FOX Geronimo 10/27 evening. Pt at bedside. This nurse informed pt and that consults would be contacted and hospitalist would be in to make rounds. Hospitalist notified of pt requests, is aware. Pt continues to be agitated.
[2019-10-29 13:16] VITALS: BP 103/69; PULSE 79; TEMP 98.1
--- NOTE | 2019-10-29 13:36 | NUR ---
Welfare Supervisor offered extensive prayer and support with patient while spouse was in room.
[2019-10-29 16:36] VITALS: BP 114/68; PULSE 77; TEMP 98.1
--- NOTE | 2019-10-29 17:13 | NUR ---
SW met with patient at his bedside to complete intake. Patient currently resides in [facility] with his Krystina [phone] as care support and EMR. Patient reports that he does have a DPOA, and he utilizes a wheelchair, and a cane. Patient reports that his PCP is Dr. Sánchez and he has an upcoming appointment in October. Patient reports that he gets his medications from [facility] with no concerns. Adeola was present during providers conversation with patient where he indicated that he continues to have difficulty walking. Patient had initially declined [facility]HS at this time. However after speaking with the doctor, he would recommend it. SW will continue to follow and speak with patient after PT/OT recommendations.
[2019-10-29 19:35] VITALS: BP 122/69; PULSE 75; TEMP 98
--- NOTE | 2019-10-29 20:00 | NUR ---
At time of assessment, patient is awake in bed, requesting to use his "Blue Emu" cream on his bedside table for his neck discomfort. He is alert and oriented, lungs are clear, heart sounds normal/regular. He tolerates taking his pills very well and is in a pleasant mood at this time. He does not complain of pain and no edema is present. He has left sided weakness and decreased sensation which is residual from stroke in August 2018. No new concerns at this time. Will continue to monitor.
[2019-10-29 23:15] VITALS: BP 126/68; PULSE 68; TEMP 98
[2019-10-30] VITALS (7 sets, daily range): BP systolic 96–148; BP diastolic 57–80; PULSE 64–79; TEMP 97.6–98.7
[2019-10-30 06:44] LABS: BASO # 0.1 (0.0-0.2); BASO % 0.8 % (0.0-2.0); EOS # 0.6 (0.0-0.7); EOS % 5.5 % (0-4.0); GRAN % 63.9 % (42.2-75.2); HEMATOCRIT 40.9 % (42.0-52.0); HEMOGLOBIN 13.3 g/dl (13.5-18.0); LYMPH # 1.5 (1.2-3.4); LYMPH % 13.7 % (20.0-51.0); MEAN CELL VOLUME 90 fl (80.0-100.0); MEAN CORPUSCULAR HEMOGLOBIN 29 pg (27.0-31.0); MEAN CORPUSCULAR HGB CONC 33 g/dl (33.0-37.0); MEAN PLATELET VOLUME 9.8 fl (7.4-10.4); MONO # 1.4 (0.1-0.6); PLATELET COUNT 226 K/mm3 (130-400); RED BLOOD COUNT 4.54 M/mm3 (4.20-5.60); REDCELL DISTRIBUTION WIDTH-CV 14.6 % (11.5-14.5)
[2019-10-30 06:55] LABS: CALCIUM 9.2 mg/dL (8.4-10.2); CREATININE, serum 1.01 (0.66-1.25); POTASSIUM 3.9 mmol/L (3.4-5.0)
--- NOTE | 2019-10-30 16:09 | NUR ---
Pt assessment completed and charted. Pt and his had a concern about morning medications, all the concerns were answered and provided the medication as per MAR. I/V flushed w/o difficulty. Pt tolerated medications, breakfast and lunch well, no problems in swallowing. Pt is alert and partially oriented. Helped pt with urinal to void on bed. No pain, N/V/D, numbness, tingling, SOB. No further needs at this time.
--- NOTE | 2019-10-30 20:01 | NUR ---
Pt cared for by this nurse and vi Bolanos RN. Pt is alert, partially oriented, mostly cooperative with cares. Pt becomes a little more agitated once arrives. asking questions this morning regarding morning medications, questions were answered, all medications discussed. Pt has RAC INT IV that flushes w/o complications. pt satting well on room air, denies any SOB, n/v/d. Pt had BM today, assisted to bedside commode. Pt uses urinal in bed. Lt side weakness noted from previous stroke. Pt has no difficulty swallowing, eating or taking meds. pt complains of pain to lt hip. Pt refused tylenol earlier this afternoon and then requested some, pt provided with tylenol. pt requesting Celebrex at shift change, states he takes it with food. Informed patient it was scheduled for this evening, would let technical laboratory asst nurse know. report given to JEFF Burgess.
--- NOTE | 2019-10-30 20:20 | NUR ---
Received report from Perlita. Seen patient awake, lying on bed. He is alert but partially oriented. He is complaining of left hip pain and wants his Celebrex. When this nurse told him that I will give his Celebrex and other night medicines he was tearful and saying thank you a couple times. He would ask same questions after few minutes saying he tends to forgot things. With INT on right AC, flushes well. He called his after receiving celebrex and other medicines. Call light within reach. Urinal on the bedside.
[2019-10-31 04:21] VITALS: BP 112/74; PULSE 61; TEMP 98.7
--- NOTE | 2019-10-31 06:35 | NUR ---
Patient had an uneventful night. He slept most of the time. He complained of left hip pain once at the beginning of the shift but it was relieved by Celebrex. Will endorse to day shift nurse.
[2019-10-31 07:00] LABS: HEMATOCRIT 41.1 % (42.0-52.0); HEMOGLOBIN 13.3 g/dl (13.5-18.0); MEAN CELL VOLUME 88 fl (80.0-100.0); MEAN CORPUSCULAR HEMOGLOBIN 29 pg (27.0-31.0); MEAN CORPUSCULAR HGB CONC 32 g/dl (33.0-37.0); MEAN PLATELET VOLUME 9.5 fl (7.4-10.4); PLATELET COUNT 237 K/mm3 (130-400); RED BLOOD COUNT 4.65 M/mm3 (4.20-5.60); REDCELL DISTRIBUTION WIDTH-CV 14.5 % (11.5-14.5)
[2019-10-31 07:04] LABS: CALCIUM 9.4 mg/dL (8.4-10.2); CREATININE, serum 1.19 (0.66-1.25); POTASSIUM 4.2 mmol/L (3.4-5.0)
[2019-10-31 07:40] VITALS: BP 98/59; PULSE 69; TEMP 97.6
[2019-10-31 07:49] LABS: BAND 1 % (0-10); EOSINOPHIL 7 % (0-4); LYMPHOCYTE 16 % (20.0-51.0); METAMYELOCYTE 3 % (0-0); NEUTROPHILS 64 % (42.0-75.2)
[2019-10-31 07:50] LABS: PLATELET ESTIMATE NORMAL (NORMAL)
[2019-10-31 07:51] LABS: OVALOCYTES 1+
[2019-10-31 08:40] LABS: PATHOLOGY DIFF REVIEW OK +
--- NOTE | 2019-10-31 10:20 | NUR ---
Pt assessment complete. Pt is sitting up in wheelchair eating breakfast, just back from MRI. Pt was unable to finish MRI, tech reports patient started punching the machine and wanted out despite PRN Haldol that was given prior . Pt reports that he needed to pee. Pt very distraught and upset this morning. States this hospital is disorganized and no one speaks haitian. Requesting Dr. Davies to come to the hospital and come see him. Pt upset that Psych was consulted and thinks that we are trying to "send him away". Pt reassured that the hospital is doing all we can to figure out what's the matter and that everything we're doing is for his best interest. at bedside and attempting to calm patient as well. Pt currently has no needs, will continue to monitor.
[2019-10-31 11:40] VITALS: BP 109/62; PULSE 76; TEMP 97.8
--- NOTE | 2019-10-31 11:45 | NUR ---
SW attended clinical rounds. The patient's , Krystina, at bedside and the patient's daughter, Claire, on speaker phone. The patient is to tentatively discharge later today or tomorrow, pending psych's consult and medication recommendations. The patient's and daughter report that they would like for the patient to return home. They state that they feel like the patient is having some hospital delirium. SW then followed up with the patient's . SW discussed PT's recommendation of home health vs SNF. The patient's reports that plan is for the patient to return back home with her. She states that due to COVID, they do not want any home health at this time. She was interested in receiving a list of home health agencies. SW provided the patient with Medicare.gov's list of home health agencies that serve [place]. The patient's did not have any other questions or concerns for SW. SW to continue to follow as needed.
[2019-10-31] MEDS ORDERED: CELEXA40 MG PO (14:55)
[2019-10-31] MEDS ORDERED: NEURONTIN100 MG/CAP PO (15:35)
[2019-10-31] MEDS ORDERED: TOPROL XL 25MG25 MG PO (15:35)
[2019-10-31] MEDS ORDERED: CELEXA 20MG20 MG/TAB PO (15:38)
[2019-10-31] MEDS ORDERED: ZOLOFT 50MG50 MG PO (15:39)
[2019-10-31] MEDS ORDERED: ZOLOFT 25MG25 MG PO (15:39)
[2019-10-31] MEDS ORDERED: SEROQUEL50 MG PO (15:40)
[2019-10-31 16:10] VITALS: BP 125/68; BP 160/89; PULSE 70; PULSE 88; TEMP 97.5; TEMP 98
--- NOTE | 2019-10-31 18:00 | NUR ---
Discharge paperwork and instructions reviewed with patient and his . All questions answered, IV to RFA dc'd. Catheter tip intact. Pt wheeled out of facility at this time.
== END 2019-10-31 18:30 | disposition home or self-care (01) | DRG 56 ==
LOC: COL.ER 15:43 → MEDICAL 20:41 → PEDS 20:41 → MEDICAL 23:04
PROVIDERS: Family Medicine; Nurse Practitioner Family; ADMIT Hospitalist
DX: I69.315 Cognitive social or emotional deficit following cerebral infarction (principal); J96.01 Acute respiratory failure with hypoxia; I50.21 Acute systolic (congestive) heart failure; I63.89 Other cerebral infarction; F05 Delirium due to known physiological condition; I69.354 Hemiplegia and hemiparesis following cerebral infarction affecting left non-dominant side; Z66 Do not resuscitate; Z79.02 Long term (current) use of antithrombotics/antiplatelets; Z79.82 Long term (current) use of aspirin; I48.91 Unspecified atrial fibrillation; F32.9 Major depressive disorder, single episode, unspecified; F41.1 Generalized anxiety disorder; F22 Delusional disorders; I11.0 Hypertensive heart disease with heart failure; I25.10 Atherosclerotic heart disease of native coronary artery without angina pectoris; Z95.1 Presence of aortocoronary bypass graft; E11.8 Type 2 diabetes mellitus with unspecified complications; N40.0 Benign prostatic hyperplasia without lower urinary tract symptoms; Z87.891 Personal history of nicotine dependence; Z88.5 Allergy status to narcotic agent; D64.9 Anemia, unspecified; E78.5 Hyperlipidemia, unspecified; F39 Unspecified mood [affective] disorder; M16.12 Unilateral primary osteoarthritis, left hip
CPT/HCPCS: OP; 99223-AI; 99233-AI; 99239; J0696; J1630; J1940; J2060; J7120; Q9967

== ENCOUNTER 2019-11-08 13:10 | Inpatient (IN) | payer MEDICARE, BC ==
[~2019-11-08] VITALS: Ht 172.7 cm; Wt 98.6 kg
[2019-11-08] VITALS (266 sets, daily range): BP systolic 82–110; BP diastolic 52–63; PULSE 72–75; TEMP 98.4–98.7; O2SAT 87–100
[~2019-11-08 13:10] MED LIST changes: +CELEXA 20MG20 MG/TAB PO; +CELEXA10 MG PO; +CELEXA40 MG PO; +FLEXERIL5 MG PO; +NEURONTIN100 MG/CAP PO; +TOPROL XL 25MG25 MG PO; +ZOLOFT 25MG25 MG PO; +ZOLOFT 50MG50 MG PO; +ZYRTEC 10MG10 MG PO; +ZYRTEC5 MG PO
[2019-11-08 14:13] LABS: HEMATOCRIT 38.6 % (42.0-52.0); HEMOGLOBIN 12.6 g/dl (13.5-18.0); MEAN CELL VOLUME 89 fl (80.0-100.0); MEAN CORPUSCULAR HEMOGLOBIN 29 pg (27.0-31.0); MEAN CORPUSCULAR HGB CONC 33 g/dl (33.0-37.0); MEAN PLATELET VOLUME 9.9 fl (7.4-10.4); PLATELET COUNT 287 K/mm3 (130-400); RED BLOOD COUNT 4.35 M/mm3 (4.20-5.60); REDCELL DISTRIBUTION WIDTH-CV 14.8 % (11.5-14.5)
[2019-11-08 14:20] LABS: INR 1.6 (0.8-3.0); PROTHROMBIN TIME 17.4 SECONDS (9.7-12.8)
[2019-11-08 14:23] LABS: ARTERIAL BLD GAS O2 SATURATION 99.1 % (92-100); ARTERIAL BLOOD GAS BASE EXCESS -2.8 (-2-2); ARTERIAL BLOOD GAS HCO3 21.8 meq/L (22-26); ARTERIAL BLOOD GAS PCO2 37.2 mmHg (35-45); ARTERIAL BLOOD GAS pH 7.39 (7.35-7.45)
[2019-11-08 14:24] LABS: ALBUMIN 3.8 gm/dL (3.5-5.0); BILIRUBIN,TOTAL 1.1 mg/dL (0.0-1.0); CALCIUM 9.2 mg/dL (8.4-10.2); CREATININE, serum 1.36 (0.66-1.25); POTASSIUM 4.2 mmol/L (3.4-5.0); TOTAL PROTEIN 7.5 gm/dL (6.4-8.2)
[2019-11-08 14:24] LABS: ARTERIAL BLOOD GAS PO2 166.6 mmHg (80-100)
[2019-11-08 14:33] LABS: TROPONIN-I 0.013 ng/mL (0.000-0.035)
[2019-11-08 15:29] LABS: BAND 11 % (0-10); EOSINOPHIL 5 % (0-4); LYMPHOCYTE 9 % (20.0-51.0); NEUTROPHILS 68 % (42.0-75.2); PLATELET ESTIMATE NORMAL (NORMAL)
--- NOTE | 2019-11-08 16:30 | NUR ---
Received telephonic report from JEFF Montenegro.
--- NOTE | 2019-11-08 17:00 | NUR ---
Patient arrived from ED hypotension. Assessment completed. Order given by Dr. Verde to bolous patient with NS. See EMAR.
--- NOTE | 2019-11-08 17:59 | NUR ---
Vancomycin Initial Dosing Pharmacy Note Ordering provider: Teddy Verde MD Indication/duration: SEPTIC SHOCK Relevant comorbidities: DM, COVID PUI LABS: WBC 23, SCr 1.4, CrCl 54 Loading dose: 2 grams (1g in ED, 1g in ICU) Maintenance dose: 1.5 grams every 12 hours Trough goal: 15-20 ug/mL. Trough 11/09 @ 1730
[2019-11-08 18:17] LABS: ARTERIAL BLD GAS O2 SATURATION 94.7 % (92-100); ARTERIAL BLD GAS TCO2 CT 22.3; ARTERIAL BLOOD GAS BASE EXCESS -3.8 (-2-2); ARTERIAL BLOOD GAS HCO3 21.1 meq/L (22-26); ARTERIAL BLOOD GAS PCO2 37.7 mmHg (35-45); ARTERIAL BLOOD GAS PO2 74.7 mmHg (80-100); ARTERIAL BLOOD GAS pH 7.37 (7.35-7.45)
--- NOTE | 2019-11-08 19:20 | NUR ---
Report given to Destiny AGUILAR. Patient is resting in bed. Call light and bedside table are within reach.
--- NOTE | 2019-11-08 19:45 | NUR ---
Bedside report received from JEFF Reyes.
--- NOTE | 2019-11-08 20:00 | NUR ---
Patient has called several times this shift already. He is very restless and appears confused, but answers all orientation questions correctly. Assessment complete, see shift assessment for details. Patient still requires O2, but was able to turn down to 8L HFNC. Patient has complaints of chronic nerve pain to the left neck down to his left hip. Will provide home medications for treatment. Patient requests to use the bedpan, provided. Small soft formed BM produced. pericare provided with personal cleansing wipes. Patient has no further needs at this time.
--- NOTE | 2019-11-08 20:04 | NUR ---
calls at this time for an update. Provider her with all the information since his arrival to the ICU. Answered all of her questions. No further needs at this time. She will call to check in later.
[2019-11-08] MEDS ORDERED: FLEXERIL5 MG PO (20:25)
--- NOTE | 2019-11-08 22:00 | NUR ---
Patient has called constantly so far this shift. He frequently needs to urinate in small amounts, but refuses catheter. Requests bedpan many times and only gas is expelled. Patient is becoming more confused throughout shift.
[2019-11-08 22:48] LABS: COLLECTION METHOD CLEAN CATCH
[2019-11-08 22:56] LABS: MUCOUS Present /lpf; PH 5 (5-8); SQUAMOUS EPITHELIAL 0-2 /hpf; URINE APPEARANCE Clear; URINE BACTERIA None Seen /hpf; URINE BILIRUBIN Negative (NEGATIVE); URINE BLOOD Negative (NEGATIVE); URINE COLOR Yellow; URINE GLUCOSE Negative (NEGATIVE); URINE KETONE Negative (NEGATIVE); URINE LEUKOCYTE ESTERASE Negative (NEGATIVE); URINE NITRATE Negative (NEGATIVE); URINE PROTEIN(semi-quant) Negative (NEGATIVE); URINE RBC 0-2 /hpf; URINE UROBILINOGEN Negative (NEGATIVE)
[2019-11-09] VITALS (745 sets, daily range): BP systolic 96–122; BP diastolic 59–68; PULSE 57–78; TEMP 98.1–98.6; O2SAT 76–100
--- NOTE | 2019-11-09 | NUR ---
Patient has not yet rested this shift. He is still restless in the bed and moves himself and the blankets frequently. Assisted into a comfortable position and warm blankets provided. Assessment complete with no changes from previous exam except for an increase in delirium. Will continue to monitor.
--- NOTE | 2019-11-09 02:00 | NUR ---
Patient awakens at this time and is screaming out into the hallway. Patient is very confused and does not know where he is and is unable to answer orientation questions other than self. Assisted patient with urinal and bedpan. Medium BM produced. Repositioned for comfort, assisted with blankets. Patient now resting again. Will continue to monitor
--- NOTE | 2019-11-09 05:00 | NUR ---
Patient awakens again confused again yelling into the hallway. Assisted with reorientation, but patient still does not understand why he is in the hospital. Only oriented to self. Explained again why he was here and all other questions. Assisted with bedpan and urinal, small BM produced. Will continue to monitor. Call light within reach
[2019-11-09 05:05] LABS: BASO % 0.2 % (0.0-2.0); GRAN # 16.7 (1.4-6.5); GRAN % 89.1 % (42.2-75.2); HEMOGLOBIN 10.9 g/dl (13.5-18.0); LYMPH # 0.7 (1.2-3.4); MEAN CELL VOLUME 90 fl (80.0-100.0); MEAN CORPUSCULAR HEMOGLOBIN 29 pg (27.0-31.0); MEAN CORPUSCULAR HGB CONC 32 g/dl (33.0-37.0); MEAN PLATELET VOLUME 9.7 fl (7.4-10.4); MONO # 0.9 (0.1-0.6); PLATELET COUNT 215 K/mm3 (130-400); RED BLOOD COUNT 3.76 M/mm3 (4.20-5.60); REDCELL DISTRIBUTION WIDTH-CV 14.8 % (11.5-14.5)
[2019-11-09 05:06] LABS: HEMATOCRIT 33.8 % (42.0-52.0)
[2019-11-09 05:11] LABS: INR 1.8 (0.8-3.0); PROTHROMBIN TIME 20.3 SECONDS (9.7-12.8)
[2019-11-09 05:16] LABS: ALANINE AMINOTRANSFERASE 41 U/L (4-49); ALKALINE PHOSPHATASE 117 U/L (50-136); ANION GAP 5 mmol/L (7-16); AST,SGOT 59 U/L (15-37); BILIRUBIN,TOTAL 0.7 mg/dL (0.0-1.0); BLOOD UREA NITROGEN 23 mg/dL (9-20); CALCIUM 8.4 mg/dL (8.4-10.2); CARBON DIOXIDE 24 mmol/L (22-30); CHLORIDE 110 mmol/L (98-107); CREATININE, serum 1.11 (0.66-1.25); GLUCOSE 160 mg/dL (74-106); POTASSIUM 4.7 mmol/L (3.4-5.0); SODIUM 139 mmol/L (137-145); TOTAL PROTEIN 6.3 gm/dL (6.4-8.2)
[2019-11-09 05:27] LABS: TROPONIN-I < 0.012 ng/mL (0.000-0.035)
--- NOTE | 2019-11-09 06:20 | NUR ---
Claire, patient's daughter, calls at this time and given report of events throughout the night and worsening of confusion. discussed lab work and patient's currently stable condition. Answered all questions.
--- NOTE | 2019-11-09 07:10 | NUR ---
Report received from JEFF Dixon. Patient is sleeping in bed. Will continue to monitor patient throughout shift.
--- NOTE | 2019-11-09 07:10 | NUR ---
Bedside report given to JEFF Reyes.
--- NOTE | 2019-11-09 10:46 | NUR ---
Auto Transmission Specialist met with patient and patient's , Krystina (ph#[phone], ) to discuss discharge planning. Patient lives in [place] with his and sees Dr. Angelo for primary care. Patient has two children, Claire (ph#[phone]) and Hunter (ph#[phone]). Patient obtains medications from [facility]. Patient has a Living Will located in [facility]. Patient uses a cane at home and reports he has had some difficulty getting around recently. Patient was recently admitted to the hospital from 10/28/19-10/31/19 and was discharged home. Per SW notes, patient and Krystina declined Home Health due to COVID but were given a list of agencies that serve [place]. SW to continue to follow for discharge needs.
--- NOTE | 2019-11-09 19:00 | NUR ---
RECEIVED REPORT FROM JEFF ZULETA. PT SITTING UP IN BED EATING DINNER ON 5L VIA NC WITH BUBBLER. VSS. CALL LIGHT WITHIN REACH.
[2019-11-10] VITALS (923 sets, daily range): BP systolic 120–135; BP diastolic 70–74; PULSE 76–112; TEMP 98.2–99.8; O2SAT 80–100
--- NOTE | 2019-11-10 00:40 | NUR ---
PT SOB, PRN NEB GIVEN NOW PER ORDER. RN NOTIFIED.
--- NOTE | 2019-11-10 01:10 | NUR ---
PT'S SON CALLS BECAUSE PT IS CALLING AND GETTING HER UPSET. EXPLAINED TO SON THAT RN WAS WITH ANOTHER PT AT CT AND WILL GO IN AND SEE THIS PT AND CALM HIM DOWN AND WILL CALL BACK AFTERWARDS. JAYLENE, DEPUTY SHERIFF GENERALIST AND RT TO BEDSIDE WITH RN X2 TO TRY AND CALM PT. PT YELLING SAYING "I CAN'T BREATHE, I CAN'T GET ANY HELP." AFTER ASSESSMENT AND ABG DRAWN, SEE MAR FOR MEDICATION GIVEN. PT CALM DOWNS SOME AND NOTIFIED.
[2019-11-10 01:20] LABS: ARTERIAL BLD GAS O2 SATURATION 90.3 % (92-100); ARTERIAL BLD GAS TCO2 CT 18.9; ARTERIAL BLOOD GAS BASE EXCESS -5.5 (-2-2); ARTERIAL BLOOD GAS PCO2 29.2 mmHg (35-45); ARTERIAL BLOOD GAS PO2 57.7 mmHg (80-100); ARTERIAL BLOOD GAS pH 7.41 (7.35-7.45)
--- NOTE | 2019-11-10 01:30 | NUR ---
PT PLACED ON AIRVO 55%, 40L BY RT.
--- NOTE | 2019-11-10 02:10 | NUR ---
JULIEN MARIEE NOTIFIED OF PT C/O CHEST PAIN AND GETS WORSE WITH BREATHING/COUGHING. NEW ORDERS RECEIVED. PT CONTINUES TO CALL OUT AND NGOZI, FONDANT COOKER NOTIFIED OF REQUEST FOR A SITTER. SITTER TO BEDSIDE TO HELP CALM PT AND REORIENT HIM.
--- NOTE | 2019-11-10 02:33 | NUR ---
EKG OBTAINED, RESULTS CAME BACK ACUTE OR. EKG RESULT PRINTED AND GIVEN TO BOTH RN AND NAMRATA SHUKLA APRN.
--- NOTE | 2019-11-10 02:35 | NUR ---
EKG, OBTAINED BY RTJAYLENE MATERIAL REPROCESSING ASSOCIATE NOTIFIED.
--- NOTE | 2019-11-10 03:48 | NUR ---
PLACED PT ON AIRVO AFTER ABG RESULTS. INITIAL SETTINGS AT 40LPM 55%. SETTINGS NOW ARE 50LPM AND 60% PT IS RESTING COMFORTABLY WITH NO DISTRESS NOTED AT THIS TIME
--- NOTE | 2019-11-10 04:32 | NUR ---
PT RESTING AT THIS TIME. RR NOTED TO BE IN HIGH 30s, LOW 40s. JULIEN MARIEE AWARE, NEW ORDERS RECEIVED. HR 112.
[2019-11-10 05:44] LABS: BASO # 0.1 (0.0-0.2); BASO % 0.4 % (0.0-2.0); EOS # 0.3 (0.0-0.7); EOS % 1.7 % (0-4.0); GRAN # 12.8 (1.4-6.5); GRAN % 82.7 % (42.2-75.2); HEMOGLOBIN 10.2 g/dl (13.5-18.0); LYMPH # 1.2 (1.2-3.4); LYMPH % 7.8 % (20.0-51.0); MEAN CELL VOLUME 90 fl (80.0-100.0); MEAN CORPUSCULAR HEMOGLOBIN 29 pg (27.0-31.0); MEAN CORPUSCULAR HGB CONC 32 g/dl (33.0-37.0); MEAN PLATELET VOLUME 9.8 fl (7.4-10.4); MONO % 6.6 % (1.7-9.3); PLATELET COUNT 255 K/mm3 (130-400); RED BLOOD COUNT 3.58 M/mm3 (4.20-5.60); REDCELL DISTRIBUTION WIDTH-CV 14.6 % (11.5-14.5)
[2019-11-10 05:45] LABS: INR 1.6 (0.8-3.0); PROTHROMBIN TIME 18.4 SECONDS (9.7-12.8)
[2019-11-10 05:46] LABS: HEMATOCRIT 32.1 % (42.0-52.0)
[2019-11-10 05:51] LABS: ALBUMIN 2.8 gm/dL (3.5-5.0); BILIRUBIN,TOTAL 0.4 mg/dL (0.0-1.0); CALCIUM 8.5 mg/dL (8.4-10.2); CREATININE, serum 1.04 (0.66-1.25); POTASSIUM 3.9 mmol/L (3.4-5.0)
[2019-11-10 05:56] LABS: ARTERIAL BLD GAS O2 SATURATION 96.5 % (92-100); ARTERIAL BLOOD GAS BASE EXCESS -4.1 (-2-2); ARTERIAL BLOOD GAS HCO3 19.1 meq/L (22-26); ARTERIAL BLOOD GAS PCO2 29.3 mmHg (35-45); ARTERIAL BLOOD GAS PO2 83.9 mmHg (80-100); ARTERIAL BLOOD GAS pH 7.43 (7.35-7.45)
[2019-11-10 06:02] LABS: TROPONIN-I 3 HR POST INITIAL 0.018 ng/mL (0.000-0.034)
--- NOTE | 2019-11-10 06:30 | NUR ---
JULIEN MARIEE AWARE OF TROPONIN TREND, NO NEW ORDERS.
--- NOTE | 2019-11-10 08:00 | NUR ---
Discussed patient status with and daughter Claire at length this AM. Reviewed lab results, vital signs, xray reports, use of oxygen and the airvo, delerium, and general concerns of the family. Daughter states Helen helps with delerium and they know he stuggles with it on every admission to the hospital.
--- NOTE | 2019-11-10 19:00 | NUR ---
RECEIVED REPORT FROM JEFF ENNIS. PT SITTING UP IN BED ON AIRVO, 60%, 50L. AT BEDSIDE TALKING TO PT AND STAFF. CALL LIGHT WITHIN REACH. VSS.
[2019-11-11] VITALS (722 sets, daily range): BP systolic 109–134; BP diastolic 68–83; PULSE 72–88; TEMP 98.5–98.9; O2SAT 77–100
[2019-11-11 05:28] LABS: ARTERIAL BLD GAS TCO2 CT 22.6; ARTERIAL BLOOD GAS BASE EXCESS -2.9 (-2-2); ARTERIAL BLOOD GAS HCO3 21.5 meq/L (22-26); ARTERIAL BLOOD GAS PCO2 36.1 mmHg (35-45); ARTERIAL BLOOD GAS pH 7.39 (7.35-7.45)
[2019-11-11 05:29] LABS: ARTERIAL BLOOD GAS PO2 145.9 mmHg (80-100)
[2019-11-11 05:50] LABS: BASO # 0.1 (0.0-0.2); BASO % 0.4 % (0.0-2.0); EOS % 8.3 % (0-4.0); GRAN # 8.8 (1.4-6.5); GRAN % 69.7 % (42.2-75.2); HEMOGLOBIN 10.2 g/dl (13.5-18.0); LYMPH # 1.5 (1.2-3.4); MEAN CELL VOLUME 91 fl (80.0-100.0); MEAN CORPUSCULAR HEMOGLOBIN 29 pg (27.0-31.0); MEAN CORPUSCULAR HGB CONC 32 g/dl (33.0-37.0); MEAN PLATELET VOLUME 9.9 fl (7.4-10.4); MONO % 8.3 % (1.7-9.3); PLATELET COUNT 238 K/mm3 (130-400); RED BLOOD COUNT 3.49 M/mm3 (4.20-5.60); REDCELL DISTRIBUTION WIDTH-CV 14.7 % (11.5-14.5)
[2019-11-11 05:55] LABS: HEMATOCRIT 31.8 % (42.0-52.0)
[2019-11-11 06:00] LABS: INR 1.7 (0.8-3.0); PROTHROMBIN TIME 18.9 SECONDS (9.7-12.8)
[2019-11-11 06:05] LABS: ALBUMIN 2.8 gm/dL (3.5-5.0); BILIRUBIN,TOTAL 0.7 mg/dL (0.0-1.0); CALCIUM 8.5 mg/dL (8.4-10.2); CREATININE, serum 0.96 (0.66-1.25); POTASSIUM 3.9 mmol/L (3.4-5.0); TOTAL PROTEIN 6.1 gm/dL (6.4-8.2)
--- NOTE | 2019-11-11 11:31 | NUR ---
Ladder Operator attended clinical rounds with the team and Hospitalist spoke with patient's Krystina and had patient's daughter Claire on the phone. SW followed up with patient and patient's following rounds. 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 Krystina states she and her son do provide patient with assistance for bathing and just a little assistance with dressing as needed. Krystina reports that the plan is for patient to return home upon discharge. Krystina states she is considering Home Health services but has not made a decision yet. Krystina states before COVID they had Home Health services from [facility] and private duty services from [facility]. Krystina is open to restarting HH services and was interested in obtaining a list of HH agencies. ERIC provided. ERIC will continue to follow
[2019-11-12] VITALS (368 sets, daily range): BP systolic 113–133; BP diastolic 56–82; PULSE 78–93; TEMP 97.9–99.4; O2SAT 82–100
--- NOTE | 2019-11-12 00:30 | NUR ---
PT RESTING IN BED EXTREMELY CONFUSED, SCREAMING AND CURSING ABOUT WANT TO GO HOME, PRN ANXIETY MEDS GIVEN AND PT REMAINS CONFUSED AT THIS TIME. SPOKE WITH PT'S TONYA AND DAUGHTER JACOBY AND EXPLAINED TO THEM THE PT STATE OF CONFUSION. WILL CONTINUE TO MONITOR PT CURRENT STATUS AND UPDATE PROVIDERS NEEDED.
--- NOTE | 2019-11-12 01:00 | NUR ---
PT REMAINS EXTREMLY ANXIOUS, SCREAMING AND, CURSING. PT CALLING FAMILY WHO THEN IS CALLING STAFF TO INQUIRE IF THERE IS POSSIBLY OTHER PRN MEDICATION TO HELP WITH ANXIETY OR SLEEP ON PT PROFILE. HOSP ADMINISTRATIVE SPECIALIST WAS CALLED FOR ADDITIONAL ORDERS, ORDERS RECIEVED. WILL CONTINUE TO MONITOR AND ASSESS PT NEEDS.
[2019-11-12 04:38] LABS: BASO % 0.3 % (0.0-2.0); EOS # 1.1 (0.0-0.7); EOS % 9.1 % (0-4.0); GRAN % 69.9 % (42.2-75.2); HEMATOCRIT 31.9 % (42.0-52.0); HEMOGLOBIN 10.3 g/dl (13.5-18.0); LYMPH # 1.4 (1.2-3.4); LYMPH % 11.8 % (20.0-51.0); MEAN CELL VOLUME 89 fl (80.0-100.0); MEAN CORPUSCULAR HEMOGLOBIN 29 pg (27.0-31.0); MEAN CORPUSCULAR HGB CONC 32 g/dl (33.0-37.0); MEAN PLATELET VOLUME 9.5 fl (7.4-10.4); MONO # 0.9 (0.1-0.6); MONO % 7.7 % (1.7-9.3); PLATELET COUNT 274 K/mm3 (130-400); REDCELL DISTRIBUTION WIDTH-CV 14.6 % (11.5-14.5)
[2019-11-12 04:48] LABS: CALCIUM 8.5 mg/dL (8.4-10.2); CREATININE, serum 1.07 (0.66-1.25); POTASSIUM 3.6 mmol/L (3.4-5.0)
--- NOTE | 2019-11-12 13:38 | NUR ---
Report called to RN on surgical floor. All questions answered. Pt's bedside updated on plan. Pt very agitated and wanting to go home. Attempted to educate and explain to Pt need for staying in the hospital. is understanding of situation. Medication given to pt to help calm him. Will transfer Pt in bed to room 326.
--- NOTE | 2019-11-12 14:00 | NUR ---
Received patient from IMCU per bed. O2 on at 3L/nasal cannula. Occasional harsh non-productive cough. Lung sounds with expiratory wheezing. Complained of pain with coughing. Confused. Spouse at bedside.
--- NOTE | 2019-11-12 18:00 | NUR ---
Sleeping after pain medication. IV antibiotic infusing.
--- NOTE | 2019-11-12 20:30 | NUR ---
Pt. sitting up in bed at this time. Pt. is alert and has intermittant confusion, but able to re-orient. PICC to rt. upper arm patent. Pt. reports pain to lt. hip and neck, will give pain meds per orders. Pt. also would like some cough syrup at this time. Will give per orders. Pt. denies further needs, call light within reach.
[2019-11-13] VITALS (8 sets, daily range): BP systolic 102–129; BP diastolic 55–74; PULSE 73–86; TEMP 97.5–98.5
[2019-11-13 09:56] LABS: MEAN CELL VOLUME 91 fl (80.0-100.0); MEAN CORPUSCULAR HGB CONC 31 g/dl (33.0-37.0); MEAN PLATELET VOLUME 9.9 fl (7.4-10.4); PLATELET COUNT 252 K/mm3 (130-400); RED BLOOD COUNT 3.47 M/mm3 (4.20-5.60); REDCELL DISTRIBUTION WIDTH-CV 14.6 % (11.5-14.5)
[2019-11-13 09:57] LABS: HEMATOCRIT 31.5 % (42.0-52.0); HEMOGLOBIN 9.9 g/dl (13.5-18.0); MEAN CORPUSCULAR HEMOGLOBIN 29 pg (27.0-31.0)
[2019-11-13 10:06] LABS: CALCIUM 8.5 mg/dL (8.4-10.2); CREATININE, serum 0.95 (0.66-1.25); MAGNESIUM 1.7 mg/dL (1.6-2.3); POTASSIUM 3.6 mmol/L (3.4-5.0)
[2019-11-13 11:12] LABS: BAND 4 % (0-10); LYMPHOCYTE 16 % (20.0-51.0); NEUTROPHILS 71 % (42.0-75.2); PLATELET ESTIMATE NORMAL (NORMAL)
[2019-11-13 11:13] LABS: OVALOCYTES 2+
--- NOTE | 2019-11-13 18:00 | NUR ---
Less coughing noted today. Afebrile. Complained of left hip pain and sore throat several times. Medicated with pain meds, muscle relaxant, and cough syrup prn. Stood at bedside with quad cane with physical therapy.
--- NOTE | 2019-11-13 20:33 | NUR ---
Assessment complete. Resting in bed, watching television. Intermittent confusion. C/O sore throat. States that the pain is such "can't swallow my own saliva". No drool observed and take PO fluids without cough or gag.
[2019-11-14 05:00] VITALS: BP 120/69; PULSE 74; TEMP 97.8
[2019-11-14 07:05] VITALS: BP 113/61; PULSE 70; TEMP 98.2
[2019-11-14 08:04] LABS: MEAN CELL VOLUME 91 fl (80.0-100.0); MEAN CORPUSCULAR HEMOGLOBIN 28 pg (27.0-31.0); MEAN CORPUSCULAR HGB CONC 31 g/dl (33.0-37.0); PLATELET COUNT 303 K/mm3 (130-400); RED BLOOD COUNT 3.52 M/mm3 (4.20-5.60); REDCELL DISTRIBUTION WIDTH-CV 14.6 % (11.5-14.5)
[2019-11-14 08:07] LABS: HEMATOCRIT 31.9 % (42.0-52.0)
[2019-11-14 08:16] LABS: CREATININE, serum 0.85 (0.66-1.25); POTASSIUM 4.2 mmol/L (3.4-5.0)
--- NOTE | 2019-11-14 08:30 | NUR ---
Patient in bed. Aggitated, spouse at bedside. Alert and oriented to self. States he does not know what day it is or where he is. Edema noted to BLE +2 pitting. RT in room for breathing treatment. States sore throat, cough drop given per orders. Patient refusing breakfast, states he does not want the pureed food that is provided. Deneis further needs at this time.
--- NOTE | 2019-11-14 09:55 | NUR ---
Patient continues yelling out and yelling at spouse. Seroquel given for aggitation.
[2019-11-14 10:55] VITALS: BP 127/72; PULSE 87; TEMP 99.3
[2019-11-14 11:13] LABS: BAND 7 % (0-10); EOSINOPHIL 12 % (0-4); LYMPHOCYTE 9 % (20.0-51.0); NEUTROPHILS 65 % (42.0-75.2)
[2019-11-14 11:14] LABS: PLATELET ESTIMATE NORMAL (NORMAL)
--- NOTE | 2019-11-14 11:15 | NUR ---
Patient continues yelling out, yelling at spouse. States he wants To see him so he can leave today. Medications given per orders. No further needs at this time.
--- NOTE | 2019-11-14 11:29 | NUR ---
Patient complaining of pain 6/10 to throat, medications given per orders. PT in room. No further needs at this time.
--- NOTE | 2019-11-14 13:18 | NUR ---
PT in to work with patient and spouse on transfers.
--- NOTE | 2019-11-14 13:28 | NUR ---
ERIC received a phone call from the patient's daughter, Claire. Claire reports that her and the patient's have decided to pursue with the patient returning back home with 24/ supervision and home health for PT/OT/fpc through [facility]. She states that she has already talked to [facility] and that they are able to do the 24/ care. She states that they do not want the patient going to a facility at this time and want to bring him home. ERIC contacted and faxed a referral to Mary Anne at [facility]. ERIC awaiting their screen.
--- NOTE | 2019-11-14 13:41 | NUR ---
Patient working with physical therapy
--- NOTE | 2019-11-14 13:42 | NUR ---
Patient working with
--- NOTE | 2019-11-14 13:46 | NUR ---
Patient advanced to mechanical soft diet per ST.
[2019-11-14 14:50] VITALS: BP 91/60; PULSE 81; TEMP 98.7
--- NOTE | 2019-11-14 15:41 | NUR ---
Patient sleeping, arouses to voice. Denies further needs at this time.
--- NOTE | 2019-11-14 16:49 | NUR ---
ERIC received a phone call from the patient's daughter, Claire. She reports that [facility] is not able to provide the 22/12 care, but that she has spoken to [facility] and that they are. She states that [facility] can start on Thursday at 0800. She states that her and her brother will stay with the patient and the patient's tomorrow night. ERIC also discussed how the patient will possibly need oxygen. Claire verbalized understanding and was agreeable to getting the oxygen at [facility]. The patient is to tentatively discharge tomorrow. SW to continue to follow.
--- NOTE | 2019-11-14 18:20 | NUR ---
Patent has done well throughout the day. Spouse at bedside throughout the day. Patient transfered to wheelchair with minimal assistance from physical therapy today. Encouraged patient to increase intake at meals. Sleeping intermittently throughout the day. Continues to complain of sore throat, cough drops given per orders. Confused throughout the day. Patient frequently reoriented. Repositioned throughout the day, Encouraged patient to increase activity. Tolerating soft diet without difficulties. Denies further needs at this time.
--- NOTE | 2019-11-14 20:00 | NUR ---
Pt. sitting up in bed at this time. Pt. has been very confused and agitated. Pt. was being assisted with the urinal by the SALES AGENT PEST CONTROL SERVICE when he stated "that hurts" and grabbed the SALES AGENT PEST CONTROL SERVICE's hand. Then the SALES AGENT PEST CONTROL SERVICE tried to deflect the confict and the pt. got more upset. This nurse entered the room and tried to get the pt. to calm down also with minimal success. Pt. Yells out that someones going to hurt him. Attempted to calm pt. by telling him no one is going to hurt him. Pt. finished urinating and then this nurse gave pt. evening meds. Pt. daughter called and talked to the pt. Then the pt.'s son called this nurse to discuss the situation. Informed the son on what was going on at the time and that his father was safe, just agitated at this time. Son voiced understanding.
--- NOTE | 2019-11-14 20:45 | NUR ---
Pt. has continued to yell out for help and screaming that he does not feel safe. Pretty, expedition supervisor stayed with pt. for several minutes to calm pt. down. Pt. does seem to be better after Pretty spent time with him. Will continue to monitor.
[2019-11-14 22:57] VITALS: BP 109/64; PULSE 91; TEMP 97.8
--- NOTE | 2019-11-15 00:52 | NUR ---
Pt. resting quietly at this time. In pt.'s room around 0000. Pt. much kinder but still confused. Pt. thinks he is at his house and calls out for his . He also thinks it is morning. Reminded pt. of the time and that he is in the hospital. Pt. voiced understanding. Pt. reported that his hip was hurting, reminded pt that he had the baclofen at 2315. Pt. denies further needs, call light within reach.
[2019-11-15 04:34] VITALS: BP 120/64; PULSE 73; TEMP 98
[2019-11-15 06:00] LABS: HEMOGLOBIN 10.4 g/dl (13.5-18.0); MEAN CELL VOLUME 92 fl (80.0-100.0); MEAN CORPUSCULAR HEMOGLOBIN 28 pg (27.0-31.0); MEAN CORPUSCULAR HGB CONC 31 g/dl (33.0-37.0); MEAN PLATELET VOLUME 9.9 fl (7.4-10.4); PLATELET COUNT 340 K/mm3 (130-400); RED BLOOD COUNT 3.66 M/mm3 (4.20-5.60); REDCELL DISTRIBUTION WIDTH-CV 14.6 % (11.5-14.5)
[2019-11-15 06:04] LABS: HEMATOCRIT 33.7 % (42.0-52.0)
[2019-11-15 06:09] LABS: CALCIUM 9.2 mg/dL (8.4-10.2); CREATININE, serum 0.92 (0.66-1.25); POTASSIUM 4.3 mmol/L (3.4-5.0)
[2019-11-15 07:40] VITALS: BP 98/44; PULSE 79; TEMP 97.2
--- NOTE | 2019-11-15 07:56 | NUR ---
Lying in bed with eyes closed. Respirations even and unlabored. Will wake up when name called out but then goes back to sleep. DECLAN Lobo, attempts to assist patient in eating breakfast. Patient tells her to leave and that he can feed himself. No signs or symptoms of discomfort noted at this time.
--- NOTE | 2019-11-15 08:04 | NUR ---
Patient unable to take pills at this time as he wakes up when name is called out and then goes back to sleep. Will try to give him his medication again in a little bit.
[2019-11-15 08:30] LABS: BAND 10 % (0-10); EOSINOPHIL 8 % (0-4); LYMPHOCYTE 15 % (20.0-51.0); NEUTROPHILS 54 % (42.0-75.2)
[2019-11-15 08:32] LABS: PLATELET ESTIMATE NORMAL (NORMAL)
--- NOTE | 2019-11-15 10:14 | NUR ---
Patient yelling out he is in pain and requests pain pill. in room and requests that patient get pain medication at this time. [place] administered as prescribed.
[2019-11-15] MEDS ORDERED: MONODOX100 PO (10:43)
[2019-11-15] MEDS ORDERED: PROAIR HFA0.09 MG/AC IH (10:44)
[2019-11-15] MEDS ORDERED: SEROQUEL 2525 MG/TAB PO (11:06)
[2019-11-15] MEDS ORDERED: TYLENOL 8 HR PO (11:07)
--- NOTE | 2019-11-15 11:23 | NUR ---
PATIENT NEEDS 2LPM WHILE AT REST AND 4LPM WHILE AMBULATING.
--- NOTE | 2019-11-15 11:29 | NUR ---
Patient yelling out and at staff and his . Requests med to help calm him down. Administered Zyprexa as prescribed.
[2019-11-15 11:49] VITALS: BP 117/74; PULSE 90; TEMP 98.6
--- NOTE | 2019-11-15 12:39 | NUR ---
Reviewed discharge packet with the patient's . Patient sleeping at this time. All questions answered. verbalizes understanding and signs discharge paperwork. Discharge packet provided to the patient's . Explain that we are waiting on the oxygen to arrive and once that is here we will contact [facility] to remove PICC and then we will be able to get the patient discharged. verbalizes understanding and denies additional needs or concerns at this time.
--- NOTE | 2019-11-15 14:40 | NUR ---
Oxygen here for patient. Assisted patient in getting dressed and transferring into wheelchair with assist of two. This nurse and DECLAN Hall, assist patient out to POV via wheel chair with . Patient assisted into vehicle with assist of two. Patient and voice no further needs at this time.
--- NOTE | 2019-11-15 15:09 | NUR ---
ERIC contacted the patient's daughter, Claire, to review discharge plan. Claire reports that the plan is for the patient to still return back home with the with assistance from her and her brother, Hunter. Claire reports that [facility] is able to start tonight for private duty services and that [facility] will then come in tomorrow at 0800. ERIC also addressed Claire's concerns and provided her with Kandy Hauser's, Risk Management phone number. The patient did qualify for oxygen. ERIC contacted and faxed the patient's oxygen order to Katie at [facility]. [facility] delivered a portable tank to the patient's room. The patient is to discharge back home with his today, 11/14, with home health services for fdc/PT/OT through [facility] and 22/12 care through [facility] and [facility]. ERIC presented and read the IM form outloud to the patient's , Krystina. Krystina verbalized understanding and gave REIC approval to sign the form on her behalf. ERIC provided a copy of the form in the patient's discharge folder. No additional needs at this time.
== END 2019-11-15 14:40 | disposition home health service (06) | DRG 871 ==
LOC: COL.ER 13:10 → ICU 13:43 → IMCU 11-11 09:25 → SURG 11-12 13:49
PROVIDERS: Emergency Medicine; Hospitalist; ADMIT Internal Medicine
PROC: 02HV33Z Insertion of Infusion Device into Superior Vena Cava, Percutaneous Approach (ICD-10-PCS; principal; 2019-11-08)
DX: A41.9 Sepsis, unspecified organism (principal); R65.21 Severe sepsis with septic shock; J96.01 Acute respiratory failure with hypoxia; N17.9 Acute kidney failure, unspecified; I50.22 Chronic systolic (congestive) heart failure; Z20.828 Contact with and (suspected) exposure to other viral communicable diseases; F41.1 Generalized anxiety disorder; I95.9 Hypotension, unspecified; I48.91 Unspecified atrial fibrillation; E11.9 Type 2 diabetes mellitus without complications; F32.9 Major depressive disorder, single episode, unspecified; E83.42 Hypomagnesemia; Z66 Do not resuscitate; D69.6 Thrombocytopenia, unspecified; M79.2 Neuralgia and neuritis, unspecified; N40.0 Benign prostatic hyperplasia without lower urinary tract symptoms; Z95.1 Presence of aortocoronary bypass graft; Z87.440 Personal history of urinary (tract) infections; Z79.82 Long term (current) use of aspirin
CPT/HCPCS: 99232-AI; 99233-AI; 99239; C1751; J0456; J0692; J1630; J1644; J1720; J1815; J1940; J2060; J2543; J3010; J3370; J3475; J3480; J7030; J7040; J7050; J7120

== ENCOUNTER 2019-11-29 19:04 | Inpatient (IN) | payer MEDICARE, BC ==
[~2019-11-29] VITALS: Ht 172.7 cm; Wt 96.3 kg
[~2019-11-29 19:04] MED LIST changes: +MONODOX100 PO; +PROAIR HFA0.09 MG/AC IH; +TYLENOL 8 HR PO
[2019-11-29 20:29] LABS: HEMATOCRIT 39.4 % (42.0-52.0); HEMOGLOBIN 12.8 g/dl (13.5-18.0); MEAN CELL VOLUME 90 fl (80.0-100.0); MEAN CORPUSCULAR HEMOGLOBIN 29 pg (27.0-31.0); MEAN CORPUSCULAR HGB CONC 33 g/dl (33.0-37.0); MEAN PLATELET VOLUME 9.8 fl (7.4-10.4); PLATELET COUNT 220 K/mm3 (130-400); RED BLOOD COUNT 4.36 M/mm3 (4.20-5.60); REDCELL DISTRIBUTION WIDTH-CV 15.7 % (11.5-14.5)
[2019-11-29 20:46] LABS: ALBUMIN 4.1 gm/dL (3.5-5.0); BILIRUBIN,TOTAL 0.8 mg/dL (0.0-1.0); CALCIUM 9.1 mg/dL (8.4-10.2); CREATININE, serum 1.02 (0.66-1.25); TOTAL PROTEIN 8.1 gm/dL (6.4-8.2)
[2019-11-29 20:58] LABS: ERYTHROCYTE SEDIMENTATION RATE 9 mm/hr (0-30)
[2019-11-29 21:02] LABS: TROPONIN-I < 0.012 ng/mL (0.000-0.035)
[2019-11-29 21:21] LABS: BAND 10 % (0-10); LYMPHOCYTE 3 % (20.0-51.0); NEUTROPHILS 85 % (42.0-75.2); PLATELET ESTIMATE NORMAL (NORMAL)
[2019-11-29 21:22] LABS: ANISOCYTOSIS 1+; HYPOCHROMIA 1+; OVALOCYTES 2+; TOXIC GRANULATION PRESENT
[2019-11-29 21:56] LABS: COLLECTION METHOD CLEAN CATCH
[2019-11-29 22:03] LABS: MUCOUS Present /lpf; PH 5 (5-8); SQUAMOUS EPITHELIAL None Seen /hpf; URINE APPEARANCE Hazy; URINE BACTERIA None Seen /hpf; URINE BILIRUBIN Negative (NEGATIVE); URINE BLOOD Negative (NEGATIVE); URINE COLOR Yellow; URINE GLUCOSE Negative (NEGATIVE); URINE KETONE Negative (NEGATIVE); URINE LEUKOCYTE ESTERASE Negative (NEGATIVE); URINE NITRATE Negative (NEGATIVE); URINE PROTEIN(semi-quant) Negative (NEGATIVE); URINE RBC 0-2 /hpf; URINE UROBILINOGEN Negative (NEGATIVE)
[2019-11-30] VITALS (658 sets, daily range): BP systolic 90–108; BP diastolic 51–73; PULSE 77–90; TEMP 97.1–99.3; O2SAT 86–100
--- NOTE | 2019-11-30 | NUR ---
Patient arrived with RNMakayla. Patient on stretcher, on 3L NC of O2. A/Ox3. no family members with him.
[2019-11-30] MEDS ORDERED: NEURONTIN400 MG/CAP PO (00:23)
[2019-11-30] MEDS ORDERED: SOMA250 MG PO ×2 (00:24→00:25)
[2019-11-30] MEDS ORDERED: TOPROL XL 25MG25 MG PO (00:31)
[2019-11-30 00:40] LABS: ARTERIAL BLOOD GAS BASE EXCESS -5.4 (-2-2); ARTERIAL BLOOD GAS HCO3 20.3 meq/L (22-26); ARTERIAL BLOOD GAS PCO2 40.4 mmHg (35-45); ARTERIAL BLOOD GAS PO2 70.3 mmHg (80-100); ARTERIAL BLOOD GAS pH 7.32 (7.35-7.45)
[2019-11-30 01:15] LABS: INR 1.3 (0.8-3.0); PROTHROMBIN TIME 14.1 SECONDS (9.7-12.8)
--- NOTE | 2019-11-30 02:33 | NUR ---
Patient has been calling out consistently, immediately after nurse leaves room over and over again. Patient is complaining that he is being ignored and states he has been here since 0800, which is false. Patient is very anxious and keeps complaining of pain in his right hip but has been told a number of times that he can not have anything stronger than tylenol because his blood pressures have been low. Patient states he understands, but then calls out a few minutes after and complains again. Nurses have been answering his calls and going into his room constantly. It has been tried to explain to patient that he is okay and is doing well and getting the care he needs but patient is still very anxious and thinks he is going to .
[2019-11-30 03:17] LABS: CHOLESTEROL RISK RATIO 3.4; MAGNESIUM 1.4 mg/dL (1.6-2.3)
--- NOTE | 2019-11-30 03:19 | NUR ---
Patient is very agitated and is getting very worked up. He is demanding to talk to or son so RN called , Krystina. Krystina said he does this every time he is in the hosptial and she spoke to him on the phone. She told me that he has a topical cream for pain for his hip and that if we could just give him something for the pain he might settle down. it was explained to her that his strong iv pain meds are on hold due to low bp and his extended QTC so he also was not given his night meds like seroquel and soma. I told her Grazyna is informed and we are working on getting something else ordered for his pain. she apologized for his behavior and told me not to take anything personal.
[2019-11-30 05:32] LABS: MEAN CELL VOLUME 91 fl (80.0-100.0); MEAN CORPUSCULAR HGB CONC 32 g/dl (33.0-37.0); MEAN PLATELET VOLUME 9.6 fl (7.4-10.4); PLATELET COUNT 170 K/mm3 (130-400); RED BLOOD COUNT 3.68 M/mm3 (4.20-5.60); REDCELL DISTRIBUTION WIDTH-CV 16.1 % (11.5-14.5)
[2019-11-30 05:34] LABS: HEMATOCRIT 33.5 % (42.0-52.0); HEMOGLOBIN 10.7 g/dl (13.5-18.0); MEAN CORPUSCULAR HEMOGLOBIN 29 pg (27.0-31.0)
[2019-11-30 05:49] LABS: INR 1.4 (0.8-3.0); PROTHROMBIN TIME 15.8 SECONDS (9.7-12.8)
[2019-11-30 05:50] LABS: ALBUMIN 3.1 gm/dL (3.5-5.0); BILIRUBIN,TOTAL 0.9 mg/dL (0.0-1.0); CALCIUM 8.3 mg/dL (8.4-10.2); CREATININE, serum 1.04 (0.66-1.25); POTASSIUM 3.8 mmol/L (3.4-5.0); TOTAL PROTEIN 6.5 gm/dL (6.4-8.2)
[2019-11-30 06:06] LABS: ANISOCYTOSIS 1+; BAND 9 % (0-10); EOSINOPHIL 1 % (0-4); LYMPHOCYTE 1 % (20.0-51.0); NEUTROPHILS 87 % (42.0-75.2); PLATELET ESTIMATE NORMAL (NORMAL)
[2019-11-30 06:08] LABS: ARTERIAL BLD GAS O2 SATURATION 90.5 % (92-100); ARTERIAL BLD GAS TCO2 CT 21.3; ARTERIAL BLOOD GAS BASE EXCESS -4.9 (-2-2); ARTERIAL BLOOD GAS HCO3 20.1 meq/L (22-26); ARTERIAL BLOOD GAS PCO2 37.1 mmHg (35-45); ARTERIAL BLOOD GAS pH 7.35 (7.35-7.45)
--- NOTE | 2019-11-30 06:59 | NUR ---
Vancomycin Initial Dosing Pharmacy Note Ordering provider: Grazyna Rodrigues APRN Indication/duration: PNA x7days LABS: CrCl~ 75 mL/min Recommendation: Loading dose: 2 grams total load given overnight 11/29/19 Maintenance dose: 1 gram every 12 hours Trough goal: 15-20 ug/mL Pharmacy will continue to follow.
--- NOTE | 2019-11-30 08:45 | NUR ---
PEARL Ortez RN at bedside for PICC placement.
--- NOTE | 2019-11-30 09:47 | NUR ---
Pt's , Krystina at bedside, updated on pt status and plan of care. CT at bedside to take pt for CT hip/pelvis. Pt's refused CT, states pt had recent Xray and CT done of left hip. Pt also refused PO medications. Pt requesting breakfast. Explained NPO status with pt. Pt does not want to take medications without food. Pt agitated. Pt's remains at bedside.
--- NOTE | 2019-11-30 12:13 | NUR ---
Speech therapy and pt's at bedside. Pt eating lunch without difficulty. VSS.
--- NOTE | 2019-11-30 12:56 | NUR ---
ERIC attended clinical rounds. The hospitalist addressed the patient's re-admits and discussed continuing agressive treatment vs more palliative care and focusing on comfort. The patient's , Krystina, reports that the patient was showing improvements at home and was suppose to start therapy next week. She states the patient was off the oxygen and that it was going to be discontinued, but then he had a fever and was advised to come the the ED. Krystina reports that she would like to continue treatment at this time. ERIC then met with the patient and his Krystina (ph#[phone]) to discuss discharge plan. The patient lives in [place] with his . He reports needing some assistance with ADLs and has a cane, walker, wheelchair, and home oxygen from [facility]. He primarily uses the wheelchair. The patient has home health services through [facility] for intermediate/PT/OT. He has 24/7 private duty services from [facility], [facility], and [facility]. Krystina reports that things were going well at home. ERIC attempted to contact Dell at [facility] to update and follow up. ERIC left her a message and faxed updates. The patient's Living Will is in EMR, but not DPOA-HC. Krystina reports that the patient does have a DPOA-HC completed and that she is his DPOA-HC. Krystina reports that the plan is for the patient to return back home with her and resume home health and 24/7 private duty services. SW to continue to follow.
--- NOTE | 2019-11-30 15:21 | NUR ---
Physical therapy in room working with pt. Pt's remains at bedside.
--- NOTE | 2019-11-30 15:26 | NUR ---
Met with pt and his to discuss goals of care. Currently they are still wanting to pursue therapy and keep working to get better. We did discuss the effect on frequent hospitalizations on this goal and that if this continues we may need to rethink those goals.
--- NOTE | 2019-11-30 16:15 | NUR ---
Pt resting in bed, easily arousable. Pt's at bedside. Discussed plan of care r/t transfer orders to medical floor. Pt seems to be forgetful and needed to reminded of conversation a few min later. Pt's left room to go home and pt called to ask where is his . Needed to be reminded again pt's , Krystina said good bye and will be back in the morning. Pt now resting in bed. Call light in reach. VSS. Pt still refuses to be repositioned. Takes pillow out after turning.
--- NOTE | 2019-11-30 19:45 | NUR ---
Phone report given to Katherine, trim carpenter at 191. Pt transferred to room 345 via bed at 193. Katherine RN in room and updated on pt status. Pt's , Krystina updated by phone of new room number.
--- NOTE | 2019-11-30 19:55 | NUR ---
PATIENT TRANSFERED FROM ICU TO ROOM 345, ACCOMPANIED BY ICU NURSES, REPORT RECEIVED FROM JEANETH. PATIENT TO CONTINUE IN CONTACT ISOLATION FOR POSITIVE MRSA. C/O OF NECK PAIN AT TIME OF ROOM TRANSFER. TELE IN PLACE. IV ABX INFUSING PER R UPPER ARM PICC LINE WITH NO PROBLEMS.
--- NOTE | 2019-11-30 20:11 | NUR ---
DECREASED STRENGTH AND SENSATION TO LUE/LLE D/T H/O STROKE, PATIENT HAS SHORT TERM MEMORY RECALL DIFFICULTY AT THIS TIME, REPEATS QUESTIONS AND STATES HE HAS PROBLEMS REMEMBERING "THINGS SOMETIMES".
--- NOTE | 2019-11-30 23:30 | NUR ---
PATIENT AGITATED, SKIN DRY, COLOR PINK, DEMANDED TO HAVE BP CHECK, REPORTED HAVING ANGINA, OXYGEN PUT ON PER NC AT 2 LPM TO NARES, SEE [facility] FOR VS TAKEN, DENIES SHORTNESS OF BREATH. SPOKE WITH STAFF AT LENGTH ABOUT HIS BEING SCARED OF PNEUMONIA AND HEART ATTACK THAT PATIENT REPORTED THAT ANGINA SUBSIDING, SKIN REMAINED PINK AND WARM/DRY, RESPIRATION NONLABORED, CONTINUED TO DENY SHORTNESS OF BREATH. TELE IN PLACE & NO REPORTED CHANGES FROM TELE.
--- NOTE | 2019-12-01 00:17 | NUR ---
PATIENT SLEEPING, AWAKENS WITH NAME CALLED, OXYGEN CONTINUES, SAT. CHECKED AT 91 PERCENT. DENIES ANGINA AT THIS TIME, SKIN CONTINUES TO REMAIN PINK, WARM AND DRY. DENIES SHORTNESS OF BREATH. DENIES PAIN ALSO TO LEFT HIP AND TO POST NECK. BREATHING NONLABORED BUT PATIENT SNORES WITH SOME PERIODS OF APNEA THAT LAST LESS THAN 5-[address].
[2019-12-01 04:15] VITALS: BP 113/58; PULSE 67; TEMP 98
--- NOTE | 2019-12-01 07:00 | NUR ---
Patient is very agitated and is yelling at staff during shift change this morning. Patient appears to be unhappy that he was put on the bedpan eariler in the shift. Patient is also loudly demanding breakfast, patient was assured that it would arrive soon, and was offered toast or cereal in the meantime, he refused both. Patient is requesting his , informed patient that his is not here, assured him we could call her during her specified hours of availablility. Patient educated extrusion manager light use as the most effective method of communicating his needs. Patient verbalizes understaning. Call light within reach.
--- NOTE | 2019-12-01 07:30 | NUR ---
CHANGE OF SHIFT REPORT GIVEN TO DAY SHIFT NURSEVANESSA. BED ALARM ON. CONTACT ISOLATION CONTINUES.
[2019-12-01 07:34] VITALS: BP 97/59; PULSE 68; TEMP 97.7
[2019-12-01 07:47] LABS: BASO # 0.1 (0.0-0.2); BASO % 0.4 % (0.0-2.0); EOS # 0.8 (0.0-0.7); EOS % 5.6 % (0-4.0); GRAN # 11.7 (1.4-6.5); LYMPH # 1.1 (1.2-3.4); LYMPH % 7.6 % (20.0-51.0); MEAN CELL VOLUME 93 fl (80.0-100.0); MEAN CORPUSCULAR HGB CONC 31 g/dl (33.0-37.0); MEAN PLATELET VOLUME 10.5 fl (7.4-10.4); MONO # 0.7 (0.1-0.6); PLATELET COUNT 173 K/mm3 (130-400); RED BLOOD COUNT 3.34 M/mm3 (4.20-5.60); REDCELL DISTRIBUTION WIDTH-CV 16.3 % (11.5-14.5)
[2019-12-01 07:50] LABS: HEMATOCRIT 31.1 % (42.0-52.0); HEMOGLOBIN 9.6 g/dl (13.5-18.0); MEAN CORPUSCULAR HEMOGLOBIN 29 pg (27.0-31.0)
[2019-12-01 07:58] LABS: ALBUMIN 2.9 gm/dL (3.5-5.0); BILIRUBIN,TOTAL 0.4 mg/dL (0.0-1.0); CALCIUM 8.2 mg/dL (8.4-10.2); CREATININE, serum 1.16 (0.66-1.25); POTASSIUM 3.8 mmol/L (3.4-5.0); TOTAL PROTEIN 6.3 gm/dL (6.4-8.2)
--- NOTE | 2019-12-01 08:00 | NUR ---
Patient resting upon entering room. Administered PO medications per order, paitent able to swallow them whole with no difficulties. Set up patient breakfast and cut necessary breakfast items. Coffee made to patient specifications and drinks arranged per his prefrence. Patient denies needs at this time, call light within reach, patient is reminded to use it when he has needs, patient verbalized understanding.
--- NOTE | 2019-12-01 09:00 | NUR ---
Patient agitated, yelling, and shaking bedrails/table upon entering room. Patient complains that his call light does not work, no one answers the call light, and no one has come to help him. Assured patient that his call light does work, informed him that his call light was answered, but he may not have heard. Assisted patient to use the urinal, voided approximately 100 ml of clear yellow urine. Patient has eaten 100% of breakfast, removed tray per patient request. Patient denies further needs, call light witin reach.
--- NOTE | 2019-12-01 10:02 | NUR ---
Salome, RN at [facility], contacted SW and confirmed services. She reports that she last saw the patient on Thursday and that everything was going well. She states that she was going to go see the patient on Thursday, but that the patient had an appointment with his relay assembler that day and the asked them to not come that day. Salome reports that his appointment with the relay assembler went well. Salome confirms that they can resume services for the patient upon discharge. ERIC to continue to follow.
--- NOTE | 2019-12-01 10:30 | NUR ---
Patient remains intermittently agitated when staff members do not respond to call light as soon as it is answered. Upon entering the room, patient states that his calls are being ignored and that he has been waiting for over half an hour with no help. Assured patient that his call light was answered because staff was informed he needed help. Patient voided approximately 75 ml of clear yellow urine in the urinal. Gave patient room phone and informed him he could call his . Patient calling at this time.
[2019-12-01 11:31] VITALS: BP 115/67; PULSE 64; TEMP 97.8
[2019-12-01 15:00] VITALS: BP 118/68; PULSE 63; TEMP 97.8
--- NOTE | 2019-12-01 17:43 | NUR ---
Patient has continued to be very demanding and unwilling to use the call light in leiu of yelling when he has needs. Call light is functioning correctly. Patient has remained continent of urine, voiding approximately 100-200 ml at a time. Patient has repeatedly requested PRN pain medication with HS meds, declines offer of administering medication now for hip pain. Patient was very unsatisfied with lunch and dinner, but declined ordering a different meal when offered, did drink glucerna when offered. Patient has become inappropriate with female staff, is apologetic when informed that behavior is inappropriate, but continues to repeat behaviors. Call light remains in reach, bed alarm on.
--- NOTE | 2019-12-01 19:40 | NUR ---
Pt is currently lying in bed. Pt was very upset because it took me to long to get back with his pain pills. Pt was cursing and calling me names. Pt stated that he was gonna blow the roof off the place because no one cares. Pt was talking with his son on the phone while I was in the room. He did get his pain medication at this time. He stated that he had a horrible day and that he wants to be out of this place. Pt vitals were all within normal limits and I stayed and let him address all his concerns. Will continue to monitor pt and address any other concerns that he has.
[2019-12-01 19:46] VITALS: BP 136/81; PULSE 66; TEMP 97.8
--- NOTE | 2019-12-01 21:00 | NUR ---
Pt currently in bed. Pt has been upset since the beginning of the shift. Pt was very angry and yelling and call me names. I was not able to listen to the pt but was able to get a set of vitals. They were all within normal limits. Pt has been on the phone yelling talking to his son. He did tell me that he was going to call 911 because he wasn't getting good care. Pt was given his pain medication that he requested 2 1932. Pt did apologize to me for being rude. He told his son that I was not giving him his pain medicaion but he medication was given. He requested to see the wood boat builder supervisor. The charge nurse Cheryl did go in and talk with him. He stated that he wanted a nurse who knew what she was doing and was P[place]de[place]ig. I gave report to JEFF Olsen at this time. Pt was fine with changing nurses. I did talk to pt on the phone. She requested that his phone somehow be disconnected because he was upsetting his son calling. She was very understanding and she was apologizing to me as well. Pt is now under the care of JEFF Olsen.
[2019-12-01 23:25] VITALS: BP 119/67; PULSE 62; TEMP 97.9
[2019-12-02 04:00] VITALS: BP 149/86; PULSE 69; TEMP 98
--- NOTE | 2019-12-02 05:09 | NUR ---
PRN acetaminophen admin for c/o sore throat.
[2019-12-02 07:14] LABS: BASO % 0.3 % (0.0-2.0); EOS # 0.9 (0.0-0.7); EOS % 9.9 % (0-4.0); GRAN # 5.8 (1.4-6.5); GRAN % 65.7 % (42.2-75.2); HEMOGLOBIN 10.2 g/dl (13.5-18.0); LYMPH # 1.3 (1.2-3.4); LYMPH % 14.8 % (20.0-51.0); MEAN CELL VOLUME 92 fl (80.0-100.0); MEAN CORPUSCULAR HEMOGLOBIN 29 pg (27.0-31.0); MEAN CORPUSCULAR HGB CONC 32 g/dl (33.0-37.0); MEAN PLATELET VOLUME 10.6 fl (7.4-10.4); MONO # 0.8 (0.1-0.6); PLATELET COUNT 167 K/mm3 (130-400); RED BLOOD COUNT 3.47 M/mm3 (4.20-5.60); REDCELL DISTRIBUTION WIDTH-CV 15.9 % (11.5-14.5)
[2019-12-02 07:20] LABS: ALBUMIN 3.2 gm/dL (3.5-5.0); BILIRUBIN,TOTAL 0.5 mg/dL (0.0-1.0); CALCIUM 8.8 mg/dL (8.4-10.2); CREATININE, serum 1.01 (0.66-1.25); POTASSIUM 4.1 mmol/L (3.4-5.0); TOTAL PROTEIN 6.8 gm/dL (6.4-8.2)
--- NOTE | 2019-12-02 07:30 | NUR ---
Report recieved from JEFF Olsen. Pt in bed resting, calling and hollering out for help, asking for the police to be called, per night filler he has been doing this since approximately 0500. Bedside shift reoprt completed, changed and cleaned d/t incontinence of urine in bed. Tried to calm pt down and reassure them of their safety. Will continue to monitor.
[2019-12-02 09:06] VITALS: BP 140/89; PULSE 70; TEMP 98
--- NOTE | 2019-12-02 10:00 | NUR ---
Called midlevel Nora, this am for PRN options to help calm patient down. Per nightshift report pt was at times causing self harm like using the call light to hit himself on the head. Pt was calm for a brief period this am but then calling again. Upon entry pt is hollering for help, states he has been sitting in stool for 3 hours. REassured that he was changed by myself at 0730 and it is now 0900. Pt was incontient of stool, brief changed and pericare provided. Pt resting in bed now, PRN ativan and seroquel given to help calm patient down and prevent any further harm to him. Krystina has called 2 times this am requesting a call from [employer], notified him of this each time and card given with her direct number to him. PICC to GIANCARLO flushes well and good blood return. Contact precautions maintained. Pt able to calm down well when in the room, states he is lonely and just needs to have people to talk to . Appreciative of care, bed alarm on, will continue ot monitor.
[2019-12-02 11:41] VITALS: BP 115/57; PULSE 61; TEMP 98.7
--- NOTE | 2019-12-02 16:01 | NUR ---
ERIC contacted the patient's , Krystina to revisit the discharge plan. The plan is return home with 22/12 care. Will continue to monitor.
[2019-12-02 16:17] VITALS: BP 139/72; PULSE 66; TEMP 97.8
--- NOTE | 2019-12-02 18:37 | NUR ---
Pt has done well todya, resting most the day. Incontinent of urine and stool today, changed and pericare provided frequently. Pt awakens easily, agreeable. Talked to on phone x2 today. Doing well, denies needs, will give bedside shift report to nightshift nurse who will resume care.
[2019-12-02 19:41] VITALS: BP 148/73; PULSE 70; TEMP 98.8
--- NOTE | 2019-12-02 21:00 | NUR ---
Pt is currently sleeping in bed. Pt has been sleeping since the beginning of shift. Pt does wake up when called. Pt has his call light within reach and his bed is in lowest position.
[2019-12-03 00:09] VITALS: BP 132/63; PULSE 65; TEMP 97.9
--- NOTE | 2019-12-03 01:45 | NUR ---
Pt is currently awake in bed. Pt called out for pain medication around 0110. JEFF Luna gave him pain medication at this time. Pt began to scream out and beat on his bedside table. Pt kept stating that he need some nose spray and he wanted to call his family. Pt was given his flonase nose spary at this time. Pt was still pretty upset and kept taking his oxygen. Pt was given seroquel at this time. Pt is currently lying in bed. He took his medication well with a sip of water. Pt has his call light within reach and his bed is in lowest position.
--- NOTE | 2019-12-03 03:33 | NUR ---
Pt currently sleeping in bed. Pt has his call light within reach and his bed is in lowest position.
[2019-12-03 03:37] VITALS: BP 124/70; PULSE 56; TEMP 98
--- NOTE | 2019-12-03 06:35 | NUR ---
Pt currently lying in bed. Pt was changed at this time. Pt did request the urinal but had already gone in his breif. Pt took his morning medicatons at this time. Pt has his call light within reach and his bed is in lowest position and his alarm is on.
[2019-12-03 07:31] LABS: BASO % 0.4 % (0.0-2.0); EOS # 0.6 (0.0-0.7); EOS % 9.1 % (0-4.0); GRAN # 4.4 (1.4-6.5); GRAN % 61.8 % (42.2-75.2); HEMOGLOBIN 10.3 g/dl (13.5-18.0); LYMPH # 1.2 (1.2-3.4); LYMPH % 17.4 % (20.0-51.0); MEAN CELL VOLUME 92 fl (80.0-100.0); MEAN CORPUSCULAR HEMOGLOBIN 29 pg (27.0-31.0); MEAN CORPUSCULAR HGB CONC 32 g/dl (33.0-37.0); MEAN PLATELET VOLUME 10.2 fl (7.4-10.4); MONO # 0.8 (0.1-0.6); MONO % 10.9 % (1.7-9.3); PLATELET COUNT 181 K/mm3 (130-400); RED BLOOD COUNT 3.55 M/mm3 (4.20-5.60); REDCELL DISTRIBUTION WIDTH-CV 15.9 % (11.5-14.5)
[2019-12-03 07:32] LABS: CALCIUM 9.1 mg/dL (8.4-10.2); CREATININE, serum 1.03 (0.66-1.25)
[2019-12-03 07:35] LABS: HEMATOCRIT 32.7 % (42.0-52.0)
[2019-12-03 07:52] VITALS: BP 119/72; PULSE 64; TEMP 97.9
--- NOTE | 2019-12-03 08:00 | NUR ---
Patient resting in bed. Arousable to verbal command. Alert to name and partially confused. Can be heard shouting for nursing staa, family, and the police to help. VSS. PICC GIANCARLO CDI. Patient leaning on right side, nurse repositioned patient upright and pillow on right side. Contact precautions in place. Call light within reach. Bed alarm on
[2019-12-03 11:39] VITALS: BP 127/71; PULSE 65; TEMP 99.2
--- NOTE | 2019-12-03 11:47 | NUR ---
Patients called and asked by nursing staff to sit with patient at the bedside. Approved by doctor and household manager per patient increased behavior. Nurse informed of visitor policy
[2019-12-03 15:51] VITALS: BP 125/67; PULSE 67; TEMP 97.9
--- NOTE | 2019-12-03 18:23 | NUR ---
Patient had intermittent episodes of yelling out at the nursing staff and pushing the call light. Nursing staff informed the patient to use the call light when absolutely needing it. Patient verbalized an understanding. was called by the nurse to speak with the patient and to help calm him down. VSS. PICC GIANCARLO CDI, fluids infusing. Patient is more calm after was at the bedside during the day. No further needs expressed from the patient. Call light within reach. Bed alarm on . Isolation precautions in place
--- NOTE | 2019-12-03 19:30 | NUR ---
Report received. Assumed care for lieutenant shift supervisor. A&O-confused. Currently very agitated-yelling out "I am going to in this place! Please let me see my one more time." Tried to re-orient but interrupts or unable to concentrate and continuet to belittle staff and yell. Did attempt to call to calm patient but he yelled at her as well. Has received seroquel-will give ativan per PRN order. O2@2L/NC-O2 sat 93%. Denies chest pain/shortness of breath/nausea but yells "im going to have another stroke or heart attack and in here alone." VS remain stable. PICC to right upper arm flushes without difficulty. Call light in reach. Will monitor.
[2019-12-03 19:35] VITALS: BP 121/79; PULSE 75; TEMP 97.8
[2019-12-04] VITALS (7 sets, daily range): BP systolic 113–145; BP diastolic 52–84; PULSE 63–83; TEMP 97.5–98.8
--- NOTE | 2019-12-04 00:05 | NUR ---
Called out to desk with c/o pain to left hip/lower extremity-rating pain 7/10 on pain scale-described as cramping/ache. Roxicodone given per dr order. Repositioned in bed with pillow support. Denies nausea/shortness of breath. VS remain stable. Call light in reach. Will monitor.
--- NOTE | 2019-12-04 07:55 | NUR ---
Patient sitting up in bed. Easily aroused. VSS 2L NC O2. No reported SOB. Patient was A&Ox3 with some confusion. Patient in/out of sleep, nurse will help patient eat when patient more awake. Patient assisted with getting repositioned. No further needs expressed from patient. Call light within reach. Bed alarm on. Isolation precautions in place.
[2019-12-04 09:17] LABS: BASO % 0.3 % (0.0-2.0); EOS # 0.8 (0.0-0.7); GRAN # 4.1 (1.4-6.5); GRAN % 56.6 % (42.2-75.2); HEMOGLOBIN 10.9 g/dl (13.5-18.0); LYMPH # 1.5 (1.2-3.4); LYMPH % 21.1 % (20.0-51.0); MEAN CELL VOLUME 93 fl (80.0-100.0); MEAN CORPUSCULAR HEMOGLOBIN 29 pg (27.0-31.0); MEAN CORPUSCULAR HGB CONC 31 g/dl (33.0-37.0); MEAN PLATELET VOLUME 10.4 fl (7.4-10.4); MONO # 0.7 (0.1-0.6); MONO % 10.2 % (1.7-9.3); PLATELET COUNT 169 K/mm3 (130-400); RED BLOOD COUNT 3.76 M/mm3 (4.20-5.60); REDCELL DISTRIBUTION WIDTH-CV 15.8 % (11.5-14.5)
[2019-12-04 09:27] LABS: HEMATOCRIT 34.8 % (42.0-52.0)
[2019-12-04 09:39] LABS: CALCIUM 9.3 mg/dL (8.4-10.2); CREATININE, serum 1.03 (0.66-1.25); POTASSIUM 3.7 mmol/L (3.4-5.0)
--- NOTE | 2019-12-04 17:42 | NUR ---
Patient had a busy day. at the bedside most of the shift and patient has been very agitated throughout the shift. Nurse gave medication to calm patient, but was unresolved. Patient is now resting in bed. VSS. PICC GIANCARLO CDI, fluids infusing. Patient reoriented by nursing staff. Reported SOB on room air, frequent O2 sats checked and >90%. Doctor aware. Will continue to monitor. Call light within reach. Bed alarm on. Isolation precautions in place
--- NOTE | 2019-12-04 20:50 | NUR ---
Assessment complete. Resting in bed. To this time, has been using call light multiple times per hour, unable to define needs, yells "help me". Assisted with urinal. Provided water and nutritional supplement. 02 0.5 L per N/C.
[2019-12-05 04:17] VITALS: BP 123/74; PULSE 72; TEMP 98.1
--- NOTE | 2019-12-05 04:44 | NUR ---
PRN roxicodone admin for c/o "severe" left ankle pain. Asked if he would like tylenol. Pt replied,"no, I need something with some teeth in it".
[2019-12-05 07:14] LABS: BASO % 0.4 % (0.0-2.0); EOS # 0.9 (0.0-0.7); EOS % 9.9 % (0-4.0); GRAN % 63.9 % (42.2-75.2); HEMOGLOBIN 10.4 g/dl (13.5-18.0); LYMPH # 1.4 (1.2-3.4); MEAN CELL VOLUME 92 fl (80.0-100.0); MEAN CORPUSCULAR HEMOGLOBIN 29 pg (27.0-31.0); MEAN CORPUSCULAR HGB CONC 31 g/dl (33.0-37.0); MEAN PLATELET VOLUME 10.5 fl (7.4-10.4); MONO % 10.3 % (1.7-9.3); PLATELET COUNT 184 K/mm3 (130-400); RED BLOOD COUNT 3.62 M/mm3 (4.20-5.60); REDCELL DISTRIBUTION WIDTH-CV 15.6 % (11.5-14.5)
[2019-12-05 07:25] LABS: HEMATOCRIT 33.3 % (42.0-52.0)
[2019-12-05 07:33] VITALS: BP 118/68; PULSE 70; TEMP 98.4
[2019-12-05 07:34] LABS: CALCIUM 9.2 mg/dL (8.4-10.2); CREATININE, serum 1.01 (0.66-1.25); POTASSIUM 3.5 mmol/L (3.4-5.0)
--- NOTE | 2019-12-05 11:27 | NUR ---
patient neeeds 2lpm with exertion. SPO2 on room air is 90%.
[2019-12-05 12:17] VITALS: BP 145/81; PULSE 79; TEMP 98.4
--- NOTE | 2019-12-05 14:14 | NUR ---
Copper Plate Lithographer collaborated with the Hospitalist who advised patient may discharge after psych consult this afternoon. SW reviewed RT assessment and patient needs 2 liters with ambulation. SW contacted patient's , Krystina who advised they use [facility]. ERIC advised Krystina that patient may discharge later this afternoon. Krystina would like to speak with Hospitalist and REIC advised he was planning to call her. ERIC contacted Solange at [facility] and faxed order for oxygen. ERIC will continue to follow.
[2019-12-05] MEDS ORDERED: LOPRESSOR 225 MG/TAB PO (15:38)
[2019-12-05] MEDS ORDERED: AMOXICILLIN 8751 TAB PO (15:40)
--- NOTE | 2019-12-05 16:19 | NUR ---
The patient is to tentatively discharge home today, 12/04. The patient will have PT/OT/Nursing with [facility]. The patient will also continue with 22/12 care with [facility] [place], and [facility]. [facility] will not deliver oxygen to the patient. Because, the patient already has all his oxygen supplies at home. ERIC contacted the patient's about ensuring she brings a portable tank for the patient at discharge. She was agreeable. ERIC faxed discharge orders to [facility]. There are no additional needs at this time.
--- NOTE | 2019-12-05 17:00 | NUR ---
Patient has been intermittently agitated today. Patient has been alert and answers orientation questions correctly when asked, but does not behave as if he understands what is told to him. Patient cries out constantly for various things, even if that need is activly being met. Patient assisted with the urinal and with incontinent bowel movements several times during the shift. Patient was repositioned multiple times during the shift, patient was persistantly migrating to the lower left side of the bed. PRN ativan and roxicodone administered per order for patient agitation and pain during the shift. Discharge orders recieved. Coordinated with social work. Called patient's and completed discharge teaching. Patient's requests cardiology appointment be rescheduled as patient will not see the nurse practitioner. Called patient back after attempting to reschedule and informed her that the cardiology office is closed for the day so the appointment was not able to be rescheduled. She verbalized understanding. PICC line removed per order by [facility] nurse. Discussed post removal care with patient's . Patient was escorted to ED entrance where he was helped into a private vehicle. Home oxygen was set up for the ride home, educated on how to turn tank off after switching to home tank. verbalized understanding and denied further questions or needs.
== END 2019-12-05 17:40 | disposition home health service (06) | DRG 871 ==
LOC: COL.ER 19:04 → ICU 22:04 → SURG 11-30 19:27
PROVIDERS: Emergency Medicine; Nurse Practitioner Family; Physician Assistant; Student in an Organized Health Care Education/Training Program; ADMIT Internal Medicine
PROC: 02HV33Z Insertion of Infusion Device into Superior Vena Cava, Percutaneous Approach (ICD-10-PCS; principal; 2019-11-30)
DX: A41.9 Sepsis, unspecified organism (principal); J18.9 Pneumonia, unspecified organism; J96.01 Acute respiratory failure with hypoxia; J69.0 Pneumonitis due to inhalation of food and vomit; I50.22 Chronic systolic (congestive) heart failure; I69.354 Hemiplegia and hemiparesis following cerebral infarction affecting left non-dominant side; F05 Delirium due to known physiological condition; Y95 Nosocomial condition; R65.20 Severe sepsis without septic shock; Z20.828 Contact with and (suspected) exposure to other viral communicable diseases; R94.31 Abnormal electrocardiogram [ECG] [EKG]; E83.42 Hypomagnesemia; F41.1 Generalized anxiety disorder; F32.9 Major depressive disorder, single episode, unspecified; E78.5 Hyperlipidemia, unspecified; I25.10 Atherosclerotic heart disease of native coronary artery without angina pectoris; Z95.1 Presence of aortocoronary bypass graft; Z66 Do not resuscitate; N40.0 Benign prostatic hyperplasia without lower urinary tract symptoms; E11.40 Type 2 diabetes mellitus with diabetic neuropathy, unspecified; I69.398 Other sequelae of cerebral infarction; R29.818 Other symptoms and signs involving the nervous system; Z87.891 Personal history of nicotine dependence; Z88.5 Allergy status to narcotic agent; I11.0 Hypertensive heart disease with heart failure
CPT/HCPCS: 99223-AI; 99233-AI; 99239; C1751; J0692; J1630; J1644; J1720; J2060; J2405; J2543; J3010; J3370; J3475; J7030; J7050; J7120

== ENCOUNTER 2020-06-11 22:06 | Emergency (ER) | payer MEDICARE, BC ==
[~2020-06-11] VITALS: Ht 175.3 cm; Wt 106.8 kg
[~2020-06-11 22:06] MED LIST changes: +AMOXICILLIN 8751 TAB PO; +LOPRESSOR 225 MG/TAB PO; +NEURONTIN400 MG/CAP PO; +SOMA250 MG PO
[2020-06-11 22:33] VITALS: BP 107/71; TEMP 98.5
[2020-06-11] MEDS ORDERED: MIRALAX PA17 GM/Dose PO (23:15)
[2020-06-11] MEDS ORDERED: COLACE 100100 MG/CAP PO (23:15)
[2020-06-11] MEDS ORDERED: SENNA-LAX8.6 MG PO (23:15)
[2020-06-12 01:00] LABS: BASO # 0.1 (0.0-0.2); BASO % 0.7 % (0.0-2.0); EOS # 0.2 (0.0-0.7); EOS % 2.6 % (0-4.0); GRAN # 5.2 (1.4-6.5); HEMATOCRIT 42.5 % (42.0-52.0); HEMOGLOBIN 13.9 g/dl (13.5-18.0); LYMPH # 1.6 (1.2-3.4); LYMPH % 19.6 % (20.0-51.0); MEAN CELL VOLUME 87 fl (80.0-100.0); MEAN CORPUSCULAR HEMOGLOBIN 29 pg (27.0-31.0); MEAN CORPUSCULAR HGB CONC 33 g/dl (33.0-37.0); MEAN PLATELET VOLUME 9.2 fl (7.4-10.4); PLATELET COUNT 198 K/mm3 (130-400); RED BLOOD COUNT 4.88 M/mm3 (4.20-5.60); REDCELL DISTRIBUTION WIDTH-CV 15.4 % (11.5-14.5)
[2020-06-12 01:05] LABS: INR 1.1 (0.8-3.0); PROTHROMBIN TIME 11.9 SECONDS (9.7-12.8)
[2020-06-12 01:09] LABS: ALBUMIN 4.7 gm/dL (3.5-5.0); BILIRUBIN,TOTAL 0.5 mg/dL (0.0-1.0); CALCIUM 9.4 mg/dL (8.4-10.2); CREATININE, serum 1.33 (0.66-1.25); POTASSIUM 3.8 mmol/L (3.4-5.0); TOTAL PROTEIN 8.1 gm/dL (6.4-8.2)
[2020-06-12 05:10] VITALS: PULSE 80
== END 2020-06-12 05:10 | disposition home or self-care (01) ==
LOC: COL.ER 22:06
PROVIDERS: Emergency Medicine
DX: K59.00 Constipation, unspecified (principal); I11.0 Hypertensive heart disease with heart failure; I50.9 Heart failure, unspecified; E78.5 Hyperlipidemia, unspecified; I25.10 Atherosclerotic heart disease of native coronary artery without angina pectoris; I48.91 Unspecified atrial fibrillation; Z95.1 Presence of aortocoronary bypass graft; Z86.73 Personal history of transient ischemic attack (TIA), and cerebral infarction without residual deficits; Z88.5 Allergy status to narcotic agent; Z88.6 Allergy status to analgesic agent; Z79.82 Long term (current) use of aspirin; Z79.02 Long term (current) use of antithrombotics/antiplatelets
CPT/HCPCS: J7030

== ENCOUNTER 2020-07-20 13:12 | Outpatient (RCR) | payer MEDICARE, BC ==
[~2020-07-20 13:12] MED LIST changes: +COLACE 100100 MG/CAP PO
== END 2020-10-18 | disposition home or self-care (01) ==
LOC: MKS.ESL.OT
DX: I69.354 Hemiplegia and hemiparesis following cerebral infarction affecting left non-dominant side (principal); I69.319 Unspecified symptoms and signs involving cognitive functions following cerebral infarction

== ENCOUNTER 2021-09-08 09:44 | Emergency (ER) | payer MEDICARE, BC ==
[~2021-09-08] VITALS: Ht 177.8 cm; Wt 104.5 kg
[2021-09-08 09:59] VITALS: TEMP 98.3
[2021-09-08 10:18] LABS: BASO % 0.4 % (0.0-2.0); EOS # 0.1 K/mm3 (0.0-0.7); EOS % 1.1 % (0.0-4.0); GRAN # 5.7 K/mm3 (1.4-6.5); GRAN % 71.6 % (42.2-75.2); LYMPH # 1.1 K/mm3 (1.2-3.4); LYMPH % 13.2 % (20.0-51.0); MEAN CELL VOLUME 88 fl (80.0-100.0); MEAN CORPUSCULAR HEMOGLOBIN 30 pg (27-31); MEAN CORPUSCULAR HGB CONC 34 g/dl (33.0-37.0); MEAN PLATELET VOLUME 8.7 fl (7.4-10.4); MONO % 12.7 % (1.7-9.3); PLATELET COUNT 166 K/mm3 (130-400); RED BLOOD COUNT 4.66 M/mm3 (4.20-5.60); REDCELL DISTRIBUTION WIDTH-CV 15.5 % (11.5-14.5)
[2021-09-08 10:28] LABS: INR 1.1 (0.8-3.0); PROTHROMBIN TIME 12.7 SECONDS (9.7-12.8)
[2021-09-08 10:31] LABS: PARTIAL THROMBOPLASTIN TIME 30.9 SECONDS (26.0-37.0)
[2021-09-08 10:35] LABS: ALBUMIN 4.1 gm/dL (3.4-4.8); BILIRUBIN,TOTAL 0.6 mg/dL (0.2-1.2); CALCIUM 10.3 mg/dL (8.4-10.2); CREATININE, serum 1.02 mg/dL (0.72-1.25); POTASSIUM 3.9 mmol/L (3.5-4.5); TOTAL PROTEIN 7.4 gm/dL (6.2-8.1)
[2021-09-08 10:41] LABS: TROPONIN-I 0.021 ng/mL (0.00-0.033)
[2021-09-08] MEDS ORDERED: ZOLOFT 100MG100 MG PO (11:03)
[2021-09-08] MEDS ORDERED: GLUMETZA500 MG PO (11:04)
[2021-09-08 12:20] LABS: COLLECTION METHOD CLEAN CATCH
[2021-09-08 12:30] LABS: MUCOUS Present (NOT PRESENT); PH 5 (5-8); SQUAMOUS EPITHELIAL 0-2 /hpf (0-10); URINE APPEARANCE Hazy (CLEAR/HAZY); URINE BACTERIA Occasional /hpf (NONE SEEN); URINE BILIRUBIN Negative (NEGATIVE); URINE BLOOD 1+ (NEGATIVE); URINE COLOR Yellow (YELLOW); URINE GLUCOSE Negative (NEGATIVE); URINE KETONE Negative (NEGATIVE); URINE LEUKOCYTE ESTERASE 2+ (NEGATIVE); URINE NITRATE Negative (NEGATIVE); URINE PROTEIN(semi-quant) Negative (NEGATIVE); URINE UROBILINOGEN Negative (NEGATIVE)
[2021-09-08] MEDS ORDERED: CIPRO 500MG TA500 MG PO (13:29)
[2021-09-08 13:55] VITALS: BP 160/92; PULSE 86
[2021-09-11] VITALS (155 sets, daily range): O2SAT 89–100
== END 2021-09-08 13:55 | disposition home or self-care (01) ==
LOC: COL.ER 09:44
PROVIDERS: Family Medicine; Nurse Practitioner
DX: N39.0 Urinary tract infection, site not specified (principal)
CPT/HCPCS: J1790

== ENCOUNTER 2021-09-09 07:24 | Inpatient (IN) | payer MEDICARE, BC ==
[2021-09-09] VITALS (521 sets, daily range): BP systolic 100–117; BP diastolic 72–76; PULSE 69–86; TEMP 98.8–99.3; O2SAT 79–100
[~2021-09-09] VITALS: Wt 105.5 kg
[~2021-09-09 07:24] MED LIST changes: +CIPRO 500MG TA500 MG PO; +GLUMETZA500 MG PO; +ZOLOFT 100MG100 MG PO
[2021-09-09 07:55] LABS: BASO % 0.4 % (0.0-2.0); EOS # 0.1 K/mm3 (0.0-0.7); EOS % 1.5 % (0.0-4.0); GRAN # 6.1 K/mm3 (1.4-6.5); GRAN % 63.5 % (42.2-75.2); HEMATOCRIT 43.3 % (42.0-52.0); HEMOGLOBIN 14.4 g/dl (13.5-18.0); LYMPH % 20.6 % (20.0-51.0); MEAN CELL VOLUME 92 fl (80.0-100.0); MEAN CORPUSCULAR HEMOGLOBIN 30 pg (27-31); MEAN CORPUSCULAR HGB CONC 33 g/dl (33.0-37.0); MEAN PLATELET VOLUME 8.8 fl (7.4-10.4); MONO # 1.2 K/mm3 (0.1-0.6); MONO % 12.6 % (1.7-9.3); PLATELET COUNT 197 K/mm3 (130-400); RED BLOOD COUNT 4.73 M/mm3 (4.20-5.60); REDCELL DISTRIBUTION WIDTH-CV 15.6 % (11.5-14.5)
[2021-09-09 08:06] LABS: ALBUMIN 4.1 gm/dL (3.4-4.8); BILIRUBIN,TOTAL 0.5 mg/dL (0.2-1.2); CALCIUM 9.2 mg/dL (8.4-10.2); CREATININE, serum 1.36 mg/dL (0.72-1.25); POTASSIUM 3.6 mmol/L (3.5-4.5); TOTAL PROTEIN 7.3 gm/dL (6.2-8.1)
[2021-09-09 08:47] LABS: AMORPHOUS CRYSTAL Present (NOT PRESENT); MUCOUS Present (NOT PRESENT); PH 5 (5-8); SQUAMOUS EPITHELIAL 0-2 /hpf (0-10); URINE APPEARANCE Cloudy (CLEAR/HAZY); URINE BACTERIA Moderate /hpf (NONE SEEN); URINE BILIRUBIN Negative (NEGATIVE); URINE BLOOD 1+ (NEGATIVE); URINE COLOR Yellow (YELLOW); URINE GLUCOSE Negative (NEGATIVE); URINE KETONE Negative (NEGATIVE); URINE LEUKOCYTE ESTERASE 2+ (NEGATIVE); URINE NITRATE Negative (NEGATIVE); URINE PROTEIN(semi-quant) 2+ (NEGATIVE); URINE UROBILINOGEN Negative (NEGATIVE)
[2021-09-09 09:37] LABS: COLLECTION METHOD CLEAN CATCH
--- NOTE | 2021-09-09 14:00 | NUR ---
PT ARRIVES TO ICU8 VIA BED FROM ED. PT YELLING OUT CONTINUALLY; STATES HIS LEG AND HIP HURTS. ALL IMAGES NEGATIVE. PT SWINGS RIGHT ARM; CONTINUALLY PULLS OFF LEADS AND PULLS AT CORDS. 22G PIV TO LEFT HAND. SPOKE WITH DR. TIMOTHY ANDERSONING PT'S AGITATION AND RESTLESSNESS; PRECEDEX GTT ORDERED.
--- NOTE | 2021-09-09 19:10 | NUR ---
Received report from JEFF Carlin.
--- NOTE | 2021-09-09 20:00 | NUR ---
Patient resting quietly in bed. Vitals within normal limits. Patient is easily woken although he remains confused and disoriented. Upon assessment, patient noted to have pulled out glass catheter. Mitts in place to protect lines.
[2021-09-09 21:33] LABS: PARTIAL THROMBOPLASTIN TIME 28.9 SECONDS (26.0-37.0)
--- NOTE | 2021-09-09 21:43 | NUR ---
Patient's , Krystina, updated.
[2021-09-10] VITALS (1110 sets, daily range): BP systolic 100–123; BP diastolic 54–73; PULSE 57–59; TEMP 98.3–98.9; O2SAT 80–100
--- NOTE | 2021-09-10 05:29 | NUR ---
Pharmacy contacted at approximately 2100 to verify Heparin drip monitoring. Original orders to monitor via Xa. However, per report received at shift change, this RN was told patient regularly takes Eliquis at home for history of AFIB. Pharmacy contacted to clarify if drip should be titrated according to Xa or PTT. Pharmacist, Jez, told this RN that PTT monitoring was more appropriate. This RN proceeded to notify hospitalist, Raegan, of pharmacy recommendations and orders were received to switch monitoring based on PTT. At 0450, this RN received a call from pharmacist, Jez, who could not find documentation of patient taking Eliquis in patient's chart. Jez recommended reverting to Xa monitoring. Raegan notified. Orders received for Xa monitoring and drip titrated accordingly.
[2021-09-10 05:50] LABS: BASO # 0.1 K/mm3 (0.0-0.2); BASO % 0.7 % (0.0-2.0); EOS # 0.2 K/mm3 (0.0-0.7); EOS % 2.6 % (0.0-4.0); GRAN # 4.9 K/mm3 (1.4-6.5); GRAN % 65.7 % (42.2-75.2); LYMPH # 1.3 K/mm3 (1.2-3.4); LYMPH % 17.7 % (20.0-51.0); MEAN CELL VOLUME 92 fl (80.0-100.0); MEAN CORPUSCULAR HGB CONC 33 g/dl (33.0-37.0); MEAN PLATELET VOLUME 9.6 fl (7.4-10.4); MONO # 0.9 K/mm3 (0.1-0.6); MONO % 12.5 % (1.7-9.3); PLATELET COUNT 136 K/mm3 (130-400); RED BLOOD COUNT 3.86 M/mm3 (4.20-5.60); REDCELL DISTRIBUTION WIDTH-CV 15.6 % (11.5-14.5)
[2021-09-10 05:57] LABS: HEMATOCRIT 35.3 % (42.0-52.0); HEMOGLOBIN 11.8 g/dl (13.5-18.0); MEAN CORPUSCULAR HEMOGLOBIN 31 pg (27-31)
[2021-09-10 06:11] LABS: CREATININE, serum 1.02 mg/dL (0.72-1.25); POTASSIUM 3.1 mmol/L (3.5-4.5)
[2021-09-10 06:25] LABS: TROPONIN-I 1.135 ng/mL (0.00-0.033)
--- NOTE | 2021-09-10 09:48 | NUR ---
REPORT RECIEVED FROM JEFF JOINER. PT IS CONTACT ISOLATION FOR PAST MRSA INFECTION. PICC LINE TO GIANCARLO WITH MEDICATIONS INFUSING; SEE GTT FLOW SHEET. PT CONTINUES TO BE CONFUSED; YELLS OUT CONSISTENTLY. PULLED OUT FC OVERNIGHT. VOIDING SMALL AMOUNT OF BLOOD TINGED URINE IN BRIEF. WILL ATTEMPT TO REINSERT MARADIAGA THIS AM TO MONITOR URINE OUTPUT. PLAN FOR BRAIN MRI AND EEG TODAY. WEARS 2L O2 VIA NC.
--- NOTE | 2021-09-10 09:58 | NUR ---
PT CONTINUES TO YELL OUT CONSISTENTLY; IS FIXED ON NEEDING TO USE THE URINAL, GETTING A DRINK OF WATER, AND HIS TONYA. URINAL HAS BEEN OFFERED NUMEROUS TIMES AND PT IS ONLY ABLE TO VOID SMALL AMOUNTS.
[2021-09-10 10:14] LABS: HEMATOCRIT 36.1 % (42.0-52.0)
--- NOTE | 2021-09-10 11:16 | NUR ---
The patient has dementia and is having an MRI. SW contacted the patient's , Krystina (ph#[phone]), to discuss discharge plan. The patient lives in [place] with his . Krystina states that the patient has a cane and wheelchair and needs assistance with using the restroom and bathing. She states that he primarily uses the wheelchair and is able to stand up and make transfers on his own. She states that she does assist him with using the restroom and that he has a private eye during the weekdays from [phone]. The aide helps him bathe. The patient's PCP is Dr. Rg Angelo and he receives his medications from [facility]. The patient has a Living Will on file, but not DPOA-HC. SW inquired about a DPOA-HC. Krystina states that the patient does not have a DPOA-HC and that she is his DPOA-HC. Krystina states that she would like for the patient to be able to return home with her upon discharge. ERIC asked the PA for PT/OT to be ordered. SW to continue to follow. *Discharge plan: Awaiting PT/OT recs*
--- NOTE | 2021-09-10 14:36 | NUR ---
FC replaced due to pt pulling it out overnight. Pt was calm prior to inserting glass. When glass was inserted pt began yelling, kicking, and swinging arm. After glass placement was complete pt calmed down and went back to sleep.
--- NOTE | 2021-09-10 19:00 | NUR ---
Received report from JEFF Carlin.
--- NOTE | 2021-09-10 19:45 | NUR ---
Patient resting quietly in bed. Krystina at bedside. Patient is alert and partially oriented, although he is primarily confused. He is following verbal commands. Vitals within normal limits. He continues to receive heparin and precedex drips, see IV drip titrations.
[2021-09-11] VITALS (890 sets, daily range): BP systolic 108–159; BP diastolic 62–83; PULSE 49–84; TEMP 98.1–99.4; O2SAT 31–100
[2021-09-11 05:17] LABS: HEMOGLOBIN 11.4 g/dl (13.5-18.0); MEAN CELL VOLUME 92 fl (80.0-100.0); MEAN CORPUSCULAR HEMOGLOBIN 30 pg (27-31); MEAN CORPUSCULAR HGB CONC 33 g/dl (33.0-37.0); MEAN PLATELET VOLUME 9.4 fl (7.4-10.4); PLATELET COUNT 135 K/mm3 (130-400); RED BLOOD COUNT 3.76 M/mm3 (4.20-5.60); REDCELL DISTRIBUTION WIDTH-CV 15.9 % (11.5-14.5)
[2021-09-11 05:41] LABS: HEMATOCRIT 34.6 % (42.0-52.0)
[2021-09-11 06:47] LABS: ALBUMIN 3.2 gm/dL (3.4-4.8); BILIRUBIN,TOTAL 0.4 mg/dL (0.2-1.2); CALCIUM 7.5 mg/dL (8.4-10.2); CREATININE, serum 0.91 mg/dL (0.72-1.25); POTASSIUM 3.6 mmol/L (3.5-4.5); TOTAL PROTEIN 5.8 gm/dL (6.2-8.1)
--- NOTE | 2021-09-11 06:55 | NUR ---
Tried to obtain EEG on patient. Patient is argumentive and yelling. Patient is know to be combative toward staff. A sleep/drowsy EEG is not able to be performed at this time. Will however check back.
--- NOTE | 2021-09-11 08:06 | NUR ---
Report received from JEFF Cotto. Pt yelling out at this time. States he wants to get out of this place and go home. This nurse explained to pt that he cannot yet go home. Pt eventually calmed down and stopped yelling. PICC to GIANCARLO; see gtt flow sheet for infusions. FC to dependent drainage; clots present from pt previously pulling out glass. Pt currently on room air. No s/s discomfort at this time.
--- NOTE | 2021-09-11 16:09 | NUR ---
Met with Krystina. She stated that she and her children would really like to get the patient back home where they know he is safe and around more familiar surroundings. We discussed options like home health services and respite care. Krystina stated that she would like to give the patient some time to see how he does. She told me that she has had concerns about increasing pain the patient complains of in his hip and ankle as well as how many medications he is on. She stated that she has asked his PCP numerous times if there is anything they could stop, but was told no. Krystina also stated that the patient has aggressive/anger episodes at home but she has been able to redirect him or step away until he calms down. I explained that her safety is also important and we may need to take that into account depending on how he does coming off the sedating medications. She nodded but again stated she hopes to get the patient home. I gave her my contact info and encouraged her to reach out if she needs anything.
[2021-09-12] VITALS (886 sets, daily range): BP systolic 106–157; BP diastolic 72–92; PULSE 73–96; TEMP 97.9–98.8; O2SAT 78–100
[2021-09-12 06:38] LABS: CALCIUM 7.3 mg/dL (8.4-10.2); CREATININE, serum 0.82 mg/dL (0.72-1.25); POTASSIUM 3.4 mmol/L (3.5-4.5)
--- NOTE | 2021-09-12 12:49 | NUR ---
A palliative care consult was ordered. Courtney, palliative care RN, spoke to the patient's yesterday. His would ultimately like to take him home upon discharge. She would like to give him some time to see how he does. SW to continue to follow.
--- NOTE | 2021-09-12 14:50 | NUR ---
Received call from Dr. Dukes that the would like a family meeting. Verified with Ron AGUILAR and was given daughter Claire's contact info. Call made to Claire. She stated she didn't feel we need to do a full blown family meeting, just that she and her brother had questions about what the treatment plan was for their dad and how long the doctor planned to keep him here. She continued, stating that the patient gets really bad hospital delirium and if he stays too long in the hospital ends up with complications so they would like to get him home as soon as possible. She stated there is kind of a sweet spot and their mom has a hard time expressing that to hospital staff so Claire just wanted to get information to help. I passed along her concern and number to Dr. Dukes, who agreed to call her to discuss the plan of care later today.
--- NOTE | 2021-09-12 15:15 | NUR ---
PATIENT TRANSPORT BY STRETCHER TO ROOM 326, REPORT WAS GIVEN TO PINEDA AGUILAR
--- NOTE | 2021-09-12 15:35 | NUR ---
Patient to room 326 from the ICU. Nurse oriented the patient to location, room and call light. No further needs expressed. Call light within reach. Bed alarm on
--- NOTE | 2021-09-12 17:46 | NUR ---
Patient sitting up in bed, family at the bedside. A&O with confusion. VSS. IV CDI. assisted with dinner. Johnson intact. Call light within reach. Bed alarm on
[2021-09-13 00:53] VITALS: BP 152/77; PULSE 74; TEMP 98.5
--- NOTE | 2021-09-13 02:11 | NUR ---
PATIENT ALERT AND ORIENTED BUT DOES GET CONFUSED IN CONVERSATION OCCASIONALLY. DENYING PAIN. HAS BEEN UP TO COMMODE SEVERAL TIMES WITH USE OF SIT TO STAND. HAD X2 LOOSE BMS. HS MEDS PER EMAR. MARADIAGA TO DD WITH CLEAR YELLOW OUTPUT. HEPARIN HELD INCASE POSSIBLE LOOP RECORDER PLACED TOMORROW. PATIENT NPO AT MIDNIGHT. HAS BEEN AGITATED BUT EASILY CONSOLABLE.
[2021-09-13 03:43] VITALS: BP 152/64; PULSE 43; TEMP 98.9
--- NOTE | 2021-09-13 05:02 | NUR ---
patient called out agitated. prn seroquel was given about 30 minutes prior. patient requested that he call his , blanka. he dialed himself and called her very agitated and was adament she come get him and take him home. patient got verbally hostile and requested to speak to nurse. was upset that he called and confused about the plan for discharge. i discussed with her that doctors would round in am and have a plan from there, she was confused about why social work had not planned a family meeting with her and her children. i discussed with her and told her i would let them know they wanted to have a family meeting. patient continued to yell and requested to call his son ricardo and his daughter jose armando, which i discussed with him and we agreed we would call at 8 am if blanka had not come yet. patient is currently resting in bed, eyes closed. respirations even and unlabored. call light in reach.
[2021-09-13 06:25] LABS: HEMATOCRIT 37.9 % (42.0-52.0); HEMOGLOBIN 12.6 g/dl (13.5-18.0); MEAN CELL VOLUME 92 fl (80.0-100.0); MEAN CORPUSCULAR HEMOGLOBIN 31 pg (27-31); MEAN CORPUSCULAR HGB CONC 33 g/dl (33.0-37.0); MEAN PLATELET VOLUME 9.3 fl (7.4-10.4); PLATELET COUNT 161 K/mm3 (130-400); RED BLOOD COUNT 4.11 M/mm3 (4.20-5.60); REDCELL DISTRIBUTION WIDTH-CV 15.9 % (11.5-14.5)
[2021-09-13 06:38] LABS: CALCIUM 7.8 mg/dL (8.4-10.2); CREATININE, serum 0.77 mg/dL (0.72-1.25); POTASSIUM 3.4 mmol/L (3.5-4.5)
[2021-09-13 07:38] VITALS: BP 141/77; PULSE 75; TEMP 97.7
--- NOTE | 2021-09-13 07:47 | NUR ---
Patient laying in bed, has been yelling out. Nursing staff reorienting the patient. A&Ox2, and confused. PICC GIANCARLO CDI. Johnson intact. VSS. Call light within reach. Bed alarm on
--- NOTE | 2021-09-13 08:15 | NUR ---
Call made to patient this AM d/t expressed concerns about no family meeting. I explained to Krystina that I had called Claire to set up an meeting but she didn't feel it was necessary if she or her brother could talk with the doctor about the plan of care. Krystina verbalized understanding and stated that she and her son would be in this AM. I told her I would stop by to make sure that they get all their questions answered.
[2021-09-13] MEDS ORDERED: LIPITOR 40MG TA40 MG PO (08:47)
[2021-09-13] MEDS ORDERED: KEPPRA1000 MG PO (08:48)
--- NOTE | 2021-09-13 09:28 | NUR ---
Several visit attempts; Medical Transcription Editor left card offering God's blessings and information regarding the availability of [facility] at our hospital.
--- NOTE | 2021-09-13 11:15 | NUR ---
Discharge paperwork reviewed with the patient and family. Son and family verbalized an understanding to follow doctors orders. PICC removed, IV site CDI. Son assisted with getting the patient into the wheelchair. No further needs expressed. Patient transfered to the ER by wheelchair. Son assisted the patient into the family vehicle. Personal belongings with the patient. No further needs expressed.
--- NOTE | 2021-09-13 11:51 | NUR ---
Grocery Clerk Checking met with patient's and son at bedside as patient will discharge home today. SW discussed Home Health services and patient's family declined and would like to continue with outpatient PT at [facility] and private duty services. Patient's son advised they have a privately hired aide that comes to the home and they have no additional needs at this time. SW presented and reviewed IM form. Patient's son verbalized understanding and provided signature. SW placed form in chart and provided copy to patient's son. Discharge Plan: Home with family
== END 2021-09-13 11:15 | disposition home health service (06) | DRG 64 ==
LOC: COL.ER 07:24 → ICU 11:15 → SURG 09-12 15:36
PROVIDERS: Internal Medicine; Personal Emergency Response Attendant; Physician Assistant; Student in an Organized Health Care Education/Training Program; ADMIT Student in an Organized Health Care Education/Training Program
PROC: 02HV33Z Insertion of Infusion Device into Superior Vena Cava, Percutaneous Approach (ICD-10-PCS; principal; 2021-09-09)
DX: I63.531 Cerebral infarction due to unspecified occlusion or stenosis of right posterior cerebral artery (principal); E11.10 Type 2 diabetes mellitus with ketoacidosis without coma; J96.01 Acute respiratory failure with hypoxia; G93.41 Metabolic encephalopathy; I69.354 Hemiplegia and hemiparesis following cerebral infarction affecting left non-dominant side; N39.0 Urinary tract infection, site not specified; I50.22 Chronic systolic (congestive) heart failure; N17.9 Acute kidney failure, unspecified; I11.0 Hypertensive heart disease with heart failure; R56.9 Unspecified convulsions; F03.90 Unspecified dementia, unspecified severity, without behavioral disturbance, psychotic disturbance, mood disturbance, and anxiety; N40.0 Benign prostatic hyperplasia without lower urinary tract symptoms; E78.5 Hyperlipidemia, unspecified; I25.10 Atherosclerotic heart disease of native coronary artery without angina pectoris; F32.A Depression, unspecified; E11.40 Type 2 diabetes mellitus with diabetic neuropathy, unspecified; N21.0 Calculus in bladder; I25.5 Ischemic cardiomyopathy; R29.700 NIHSS score 0; I49.1 Atrial premature depolarization; I48.0 Paroxysmal atrial fibrillation; Z95.1 Presence of aortocoronary bypass graft; Z87.891 Personal history of nicotine dependence; Z79.84 Long term (current) use of oral hypoglycemic drugs; Z79.82 Long term (current) use of aspirin
CPT/HCPCS: 99223-AI; 99233-AI; 99239; A4314; C1751; J0696; J1630; J1644; J1815; J1953; J2060; J3010; J3480; J7030

== ENCOUNTER 2021-10-19 11:24 | Emergency (ER) | payer MEDICARE, BC ==
[~2021-10-19] VITALS: Ht 177.8 cm; Wt 104.5 kg
[~2021-10-19 11:24] MED LIST changes: +KEPPRA1000 MG PO; +LIPITOR 40MG TA40 MG PO
[2021-10-19 11:49] VITALS: TEMP 98.1
[2021-10-19 11:57] LABS: COLLECTION METHOD CLEAN CATCH
[2021-10-19 12:05] LABS: MUCOUS Present (NOT PRESENT); PH 5 (5-8); URINE APPEARANCE Hazy (CLEAR/HAZY); URINE BACTERIA None Seen /hpf (NONE SEEN); URINE BILIRUBIN Negative (NEGATIVE); URINE BLOOD Negative (NEGATIVE); URINE COLOR Amber (YELLOW); URINE GLUCOSE Negative (NEGATIVE); URINE KETONE Trace (NEGATIVE); URINE LEUKOCYTE ESTERASE Negative (NEGATIVE); URINE NITRATE Negative (NEGATIVE); URINE PROTEIN(semi-quant) Negative (NEGATIVE); URINE UROBILINOGEN Negative (NEGATIVE)
[2021-10-19 13:10] LABS: BASO % 0.4 % (0.0-2.0); EOS # 0.2 K/mm3 (0.0-0.7); EOS % 1.8 % (0.0-4.0); GRAN # 7.3 K/mm3 (1.4-6.5); GRAN % 74.2 % (42.2-75.2); HEMATOCRIT 42.1 % (42.0-52.0); HEMOGLOBIN 14.3 g/dl (13.5-18.0); LYMPH # 1.2 K/mm3 (1.2-3.4); LYMPH % 11.8 % (20.0-51.0); MEAN CELL VOLUME 90 fl (80.0-100.0); MEAN CORPUSCULAR HEMOGLOBIN 31 pg (27-31); MEAN CORPUSCULAR HGB CONC 34 g/dl (33.0-37.0); MEAN PLATELET VOLUME 9.2 fl (7.4-10.4); MONO # 1.1 K/mm3 (0.1-0.6); MONO % 11.1 % (1.7-9.3); PLATELET COUNT 185 K/mm3 (130-400); RED BLOOD COUNT 4.69 M/mm3 (4.20-5.60); REDCELL DISTRIBUTION WIDTH-CV 16.5 % (11.5-14.5)
[2021-10-19 13:27] LABS: ALANINE AMINOTRANSFERASE 19 U/L (0-55); ALBUMIN 4.2 gm/dL (3.4-4.8); ALKALINE PHOSPHATASE 57 U/L (40-150); ANION GAP 11 mmol/L (7-16); AST,SGOT 28 U/L (5-34); BILIRUBIN,TOTAL 0.5 mg/dL (0.2-1.2); BLOOD UREA NITROGEN 20 mg/dL (8-26); CALCIUM 9.1 mg/dL (8.4-10.2); CARBON DIOXIDE 23 mmol/L (23-31); CHLORIDE 106 mmol/L (98-107); CREATININE, serum 1.09 mg/dL (0.72-1.25); GLUCOSE 139 mg/dL (70-99); SODIUM 140 mmol/L (136-145); TOTAL PROTEIN 7.7 gm/dL (6.2-8.1)
[2021-10-19 13:34] LABS: TROPONIN-I < 0.010 ng/mL (0.00-0.033)
[2021-10-19 13:42] VITALS: BP 121/82; PULSE 71
== END 2021-10-19 13:42 | disposition home or self-care (01) ==
LOC: COL.ER 11:24
PROVIDERS: Emergency Medicine
DX: R53.81 Other malaise (principal)

== ENCOUNTER 2021-10-21 19:05 | Emergency (ER) | payer MEDICARE, BC ==
[~2021-10-21] VITALS: Ht 175.3 cm; Wt 104.5 kg
[2021-10-21 19:15] VITALS: TEMP 98.3
[2021-10-21 19:49] LABS: BASO % 0.4 % (0.0-2.0); EOS # 0.2 K/mm3 (0.0-0.7); EOS % 1.9 % (0.0-4.0); GRAN # 7.5 K/mm3 (1.4-6.5); GRAN % 70.9 % (42.2-75.2); HEMOGLOBIN 13.9 g/dl (13.5-18.0); LYMPH # 1.4 K/mm3 (1.2-3.4); LYMPH % 13.1 % (20.0-51.0); MEAN CELL VOLUME 91 fl (80.0-100.0); MEAN CORPUSCULAR HEMOGLOBIN 31 pg (27-31); MEAN CORPUSCULAR HGB CONC 34 g/dl (33.0-37.0); MEAN PLATELET VOLUME 9.1 fl (7.4-10.4); MONO # 1.4 K/mm3 (0.1-0.6); MONO % 12.9 % (1.7-9.3); PLATELET COUNT 202 K/mm3 (130-400); RED BLOOD COUNT 4.53 M/mm3 (4.20-5.60); REDCELL DISTRIBUTION WIDTH-CV 16.6 % (11.5-14.5)
[2021-10-21 20:09] LABS: BILIRUBIN,TOTAL 0.5 mg/dL (0.2-1.2); CALCIUM 9.4 mg/dL (8.4-10.2); CREATININE, serum 1.18 mg/dL (0.72-1.25); POTASSIUM 4.3 mmol/L (3.5-4.5); TOTAL PROTEIN 7.3 gm/dL (6.2-8.1)
[2021-10-21] MEDS ORDERED: OMNICEF 300MG300 MG PO (21:39)
[2021-10-21] MEDS ORDERED: LIORESAL 1010 MG/TAB PO (21:40)
[2021-10-21 23:54] VITALS: BP 124/83; PULSE 68
[2021-10-22] MEDS ORDERED: SEROQUEL50 MG PO (07:55)
[2021-10-22] MEDS ORDERED: TYLENOL 325MG325 MG PO (08:00)
== END 2021-10-22 | disposition home or self-care (01) ==
LOC: COL.ER 19:05
PROVIDERS: Personal Emergency Response Attendant
DX: F03.91 Unspecified dementia, unspecified severity, with behavioral disturbance (principal)
CPT/HCPCS: J1630; J7030

== ENCOUNTER 2021-10-22 05:07 | Emergency (ER) | payer MEDICARE, BC ==
[~2021-10-22] VITALS: Ht 177.8 cm; Wt 113.6 kg
[~2021-10-22 05:07] MED LIST changes: +LIORESAL 1010 MG/TAB PO; +OMNICEF 300MG300 MG PO
[2021-10-22 05:48] LABS: ACETAMINOPHEN < 1.0 ug/mL (10-30); ALCOHOL(ethanol),MEDICAL < 10 mg/dL (0-10); SALICYLATE < 5.0 mg/dL (15.0-30.0)
[2021-10-22] MEDS ORDERED: SEROQUEL50 MG PO (07:55)
[2021-10-22] MEDS ORDERED: TYLENOL 325MG325 MG PO (08:00)
[2021-10-22 09:24] LABS: COLLECTION METHOD CLEAN CATCH
[2021-10-22 09:37] LABS: MUCOUS Present (NOT PRESENT); PH 5 (5-8); SQUAMOUS EPITHELIAL 0-2 /hpf (0-10); URINE APPEARANCE Hazy (CLEAR/HAZY); URINE BACTERIA None Seen /hpf (NONE SEEN); URINE BILIRUBIN Negative (NEGATIVE); URINE BLOOD Negative (NEGATIVE); URINE CALCIUM OXALATE CRYSTAL Present (NOT PRESENT); URINE COLOR Yellow (YELLOW); URINE GLUCOSE Negative (NEGATIVE); URINE KETONE Trace (NEGATIVE); URINE LEUKOCYTE ESTERASE Negative (NEGATIVE); URINE NITRATE Negative (NEGATIVE); URINE PROTEIN(semi-quant) Negative (NEGATIVE); URINE UROBILINOGEN Negative (NEGATIVE)
[2021-10-22 09:38] LABS: TRICYCLIC ANTIDEPRESS URINE NEGATIVE
[2021-10-22 18:23] VITALS: BP 118/84; PULSE 67; TEMP 98.2
== END 2021-10-22 18:23 ==
LOC: COL.ER 05:07
PROVIDERS: Emergency Medicine
DX: F03.91 Unspecified dementia, unspecified severity, with behavioral disturbance (principal); Z20.822 Contact with and (suspected) exposure to COVID-19
CPT/HCPCS: J1630; J1790; J2060

== ENCOUNTER → 2022-01-03 | Outpatient (CLI) | payer MEDICARE, BC ==
[2022-01-03 15:10] LABS: HEMATOCRIT 41.5 % (42.0-52.0); HEMOGLOBIN 13.5 g/dl (13.5-18.0); MEAN CELL VOLUME 91 fl (80.0-100.0); MEAN CORPUSCULAR HEMOGLOBIN 30 pg (27-31); MEAN CORPUSCULAR HGB CONC 33 g/dl (33.0-37.0); MEAN PLATELET VOLUME 9.2 fl (7.4-10.4); PLATELET COUNT 161 K/mm3 (130-400); RED BLOOD COUNT 4.56 M/mm3 (4.20-5.60); REDCELL DISTRIBUTION WIDTH-CV 14.9 % (11.5-14.5)
[2022-01-03 15:28] LABS: ALBUMIN 3.5 gm/dL (3.4-4.8); BILIRUBIN,TOTAL 0.4 mg/dL (0.2-1.2); CALCIUM 9.1 mg/dL (8.4-10.2); CREATININE, serum 0.92 mg/dL (0.72-1.25); POTASSIUM 4.3 mmol/L (3.5-4.5); TOTAL PROTEIN 6.9 gm/dL (6.2-8.1)
[2022-01-03 16:04] LABS: BAND 2 % (0-10); BASOPHIL 1 % (0-2); EOSINOPHIL 4 % (0-4); HYPOCHROMIA 1+; LYMPHOCYTE 25 % (20.0-51.0); METAMYELOCYTE 1 % (0-0); NEUTROPHILS 57 % (42.0-75.2); PLATELET ESTIMATE NORMAL (NORMAL)
== END ==
LOC: COL.LAB 13:34
PROVIDERS: Family Medicine
DX: M79.89 Other specified soft tissue disorders (principal)

== ENCOUNTER → 2022-02-10 | Outpatient (CLI) | payer MEDICARE, BC ==
[2022-02-10 12:12] LABS: BASO # 0.1 K/mm3 (0.0-0.2); BASO % 0.7 % (0.0-2.0); EOS # 0.1 K/mm3 (0.0-0.7); EOS % 1.4 % (0.0-4.0); GRAN # 5.1 K/mm3 (1.4-6.5); GRAN % 67.1 % (42.2-75.2); HEMATOCRIT 43.5 % (42.0-52.0); HEMOGLOBIN 14.6 g/dl (13.5-18.0); LYMPH % 12.8 % (20.0-51.0); MEAN CELL VOLUME 91 fl (80.0-100.0); MEAN CORPUSCULAR HEMOGLOBIN 31 pg (27-31); MEAN CORPUSCULAR HGB CONC 34 g/dl (33.0-37.0); MEAN PLATELET VOLUME 9.7 fl (7.4-10.4); MONO # 1.3 K/mm3 (0.1-0.6); PLATELET COUNT 166 K/mm3 (130-400); RED BLOOD COUNT 4.79 M/mm3 (4.20-5.60); REDCELL DISTRIBUTION WIDTH-CV 16.1 % (11.5-14.5)
[2022-02-10 12:30] LABS: ALBUMIN 3.7 gm/dL (3.4-4.8); BILIRUBIN,TOTAL 0.8 mg/dL (0.2-1.2); C-REACTIVE PROTEIN 1.25 mg/dL (0.00-0.50); CALCIUM 9.6 mg/dL (8.4-10.2); CREATININE, serum 1.17 mg/dL (0.72-1.25); POTASSIUM 3.6 mmol/L (3.5-4.5); TOTAL PROTEIN 7.2 gm/dL (6.2-8.1)
[2022-02-10 13:41] LABS: COLLECTION METHOD CLEAN CATCH
[2022-02-10 14:47] LABS: URINE APPEARANCE Clear (CLEAR/HAZY); URINE COLOR Yellow (YELLOW)
[2022-02-10 14:48] LABS: PH 5.5 (5.0-8.5); URINE GLUCOSE Negative (NEGATIVE); URINE KETONE TRACE (NEGATIVE); URINE PROTEIN(semi-quant) 1+ (NEGATIVE); URINE UROBILINOGEN 0.2 E.U/dL (0.2-1.0)
[2022-02-10 14:49] LABS: URINE BLOOD Negative (NEGATIVE); URINE NITRATE Negative (NEGATIVE)
[2022-02-10 14:51] LABS: MUCOUS Present (NOT PRESENT); URINE BACTERIA Rare /hpf (NONE SEEN); URINE RBC 0-2 /hpf (0-2)
== END ==
LOC: COL.LAB 11:43
PROVIDERS: Internal Medicine
DX: R41.0 Disorientation, unspecified (principal)